=== PATIENT | male | born 1995 ===

== ENCOUNTER 2022-11-06 13:35 | Inpatient (IN) | payer MEDICAID, OTHER ==
--- NOTE | 2022-11-06 14:20 | ED ---
General Adult HPI - General Source: patient Mode of arrival: ambulatory Limitations: no limitations <Soraida Centeno - Last Filed: 11/06/22 14:20> - History of Present Illness -: week(s) Severity scale (1-10): 0 Improves with: none Worsens with: none Associated Symptoms: denies other symptoms Treatments Prior to Arrival: none <Angus Heard - Last Filed: 11/18/22 23:27> - General Chief complaint: Psychiatric Symptoms Stated complaint: Mental Health Time Seen by Provider: 11/06/22 14:19 - History of Present Illness Initial comments: 27-year-old male with no significant past medical history presents the emergency department for psychiatric evaluation (Soraida Centeno) This patient is a 27-year-old man who is complaining mainly of anxiety. He states that he has long-standing history of this and had been having good success with treatment about a year ago when he was on Invega. The patient states that he is out of the medicine and in fact has missed some appointments with his previous provider, so he is not able to obtain more of this. The patient is not having suicidal or homicidal ideation, he would like to get back on the medication before he reaches that stage. (Angus Heard) - Related Data Previous Rx's Medication Instructions Recorded ARIPiprazole IM SYRINGE [Abilify 400 mg IM QMONTHLY #1 each 11/14/22 Maintena Syringe] ARIPiprazole [Abilify] 10 mg PO DAILY 13 Days #13 tab 11/14/22 Nicotine 14Mg/24Hr Patch [Habitrol] 1 patch TRANSDERM DAILY 14 Days 11/14/22 #14 patch hydrOXYzine pamoate [Vistaril] 50 mg PO BID PRN 30 Days #60 cap 11/14/22 traZODone HCL [Desyrel] 25 mg PO HS PRN 30 Days #15 tab 11/14/22 Allergies Allergy/AdvReac Type Severity Reaction Status Date / Time No Known Allergies Allergy Verified 11/07/22 00:25 Review of Systems ROS Other: All systems not noted in ROS Statement are negative. <Soraida Centeno - Last Filed: 11/06/22 14:20> ROS Other: All systems not noted in ROS Statement are negative. Constitutional: Denies: fever, chills Respiratory: Denies: cough, dyspnea Cardiovascular: Denies: chest pain Gastrointestinal: Denies: abdominal pain, vomiting, diarrhea Genitourinary: Denies: dysuria, hematuria Neurological: Denies: headache, weakness Psychiatric: Reports: anxiety. Denies: auditory hallucinations, visual hallucinations, homicidal thoughts, suicidal thoughts <OrquideaAngus - Last Filed: 11/18/22 23:27> ROS Statement: Those systems with pertinent positive or pertinent negative responses have been documented in the HPI. Past Medical History Past Medical History: No Reported History History of Any Multi-Drug Resistant Organisms: None Reported Additional Past Surgical History / Comment(s): left hip, Past Psychological History: Anxiety Smoking Status: Current every day smoker Past Alcohol Use History: Daily Past Drug Use History: None Reported, Marijuana <Soraida Centeno - Last Filed: 11/06/22 14:20> General Exam Limitations: no limitations <Soraida Centeno - Last Filed: 11/06/22 14:20> General appearance: alert, in no apparent distress Head exam: Present: atraumatic, normocephalic Eye exam: Present: normal appearance. Absent: scleral icterus, conjunctival injection Neck exam: Present: normal inspection Respiratory exam: Present: normal lung sounds bilaterally. Absent: respiratory distress, wheezes, rales, rhonchi, stridor Cardiovascular Exam: Present: regular rate, normal rhythm, normal heart sounds. Absent: systolic murmur, diastolic murmur, rubs, gallop GI/Abdominal exam: Present: soft. Absent: tenderness Extremities exam: Present: normal inspection, normal capillary refill. Absent: pedal edema, calf tenderness Neurological exam: Present: alert Psychiatric exam: Present: anxious. Absent: depressed, agitated, flat affect, manic, homicidal ideation, suicidal ideation Skin exam: Present: warm, dry, intact, normal color. Absent: rash <OrquideaAngus - Last Filed: 11/18/22 23:27> - General Exam Comments Initial Comments: Visual Physical Exam Vital signs reviewed General: Well-appearing, nontoxic, no acute distress. Head: Normocephalic, atraumatic Eyes: PERRLA, EOMI ENT: Airway patent Chest: Nonlabored breathing Skin: No visual rash, normal skin tone Neuro: Alert and oriented 3 Musculoskeletal: No gross abnormalities (Soraida Centeno) Course Vital Signs 11/06/22 11/06/22 11/07/22 13:48 22:56 00:35 Temperature 97.7 F 98.0 F Pulse Rate 72 78 Pulse Rate [ 67 Left Sitting] Respiratory 18 14 14 Rate Blood Pressure 143/90 143/79 Blood Pressure 158/94 [Left Arm Sitting] O2 Sat by Pulse 98 99 99 Oximetry Medical Decision Making - Lab Data Result diagrams: 11/07/22 07:09 11/07/22 07:09 <Angus Heard - Last Filed: 11/18/22 23:27> - Medical Decision Making This patient is a 27-year-old man presenting with worsening of his usual psychiatric symptoms The patient is seen by EPS and they will admit to have a continuing care Was pt. sent in by a medical professional or institution (MAY[facility] Batres, [employer] MA[employer]GER, urgent care, hospital, or detention...) When possible be specific @ -[No] Did you speak to anyone other than the patient for history (EMS, parent, family, police, friend...)? What history was obtained from this source @ -[No] Did you review nursing and triage notes (agree or disagree)? Why? @ -[I reviewed and agree with nursing and triage notes] Were old charts reviewed (outside hosp., previous admission, EMS record, old EKG, old radiological studies, urgent care reports/EKG's, detention records)? Report findings @ -[No old charts were reviewed] Differential Diagnosis (chest pain, altered mental status, abdominal pain women, abdominal pain men, vaginal bleeding, weakness, fever, dyspnea, syncope, head ache, dizziness, GI bleed, back pain, seizure, CVA, palpatations, mental health, musculoskeletal)? @ -[Differential Mental Health Depression, anxiety, bipolar, psychosis, schizophrenia, borderline personality, situational depression, adjustment disorder, behavioral disorder, brain tumor, malingering, substance abuse, encephalopathy, medication reaction, dementia, hypothyroidism, degenerative neurologic disorder, lupus.... This is not meant to be all-inclusive list EKG interpreted by me (3pts min.). @ -[ X-rays interpreted by me (1pt min.). @ -[None done] CT interpreted by me (1pt min.). @ -[None done] U/S interpreted by me (1pt. min.). @ -[None done] What testing was considered but not performed or refused? (CT, X-rays, U/S, labs)? Why? @ -[None] What meds were considered but not given or refused? Why? @ -[None] Did you discuss the management of the patient with other professionals (professionals i.e. , PA, [employer] AND RECREATION MANAGER, lab, RT, psych nurse, social services assistant, report checker, teacher, dog license officer supervisor, high risk case manager)? Give summary @ -[EPS personnel Was smoking cessation discussed for >3mins.? @ -[No] Was critical care preformed (if so, how long)? @ -[No] Were there social determinants of health that impacted care today? How? (Homelessness, low income, unemployed, alcoholism, drug addiction, transportation, low edu. Level, literacy, decrease access to med. care, prison, rehab)? @ -[No] Was there de-escalation of care discussed even if they declined (Discuss DNR or withdrawal of care, Hospice)? DNR status @ -[No] What co-morbidities impacted this encounter? (DM, HTN, Smoking, COPD, CAD, Cancer, CVA, ARF, Chemo, Hep., AIDS, mental health diagnosis, sleep apnea, morbid obesity)? @ -[None] Was patient admitted / discharged? Hospital course, mention meds given and route, prescriptions, significant lab abnormalities, going to OR and other pertinent info. @ -[Admitted Undiagnosed new problem with uncertain prognosis? @ -[No] Drug Therapy requiring intensive monitoring for toxicity (Heparin, Nitro, Insulin, Cardizem)? @ -[No] Were any procedures done? @ -[No] Diagnosis/symptom? @ -[Acute psychosis Acute, or Chronic, or Acute on Chronic? @ -[Acute on chronic Uncomplicated (without systemic symptoms) or Complicated (systemic symptoms)? @ -[Uncomplicated Side effects of treatment? @ -[No] Exacerbation, Progression, or Severe Exacerbation? @ -[No] Poses a threat to life or bodily function? How? (Chest pain, USA, ME, pneumonia, PE, COPD, DKA, ARF, appy, cholecystitis, CVA, Diverticulitis, Homicidal, Suicidal, threat to staff... and all critical care pts) @ -[No] (Angus Heard) - Lab Data Lab Results 11/06/22 11/06/22 11/06/22 Range/Units 14:20 14:20 18:41 Urine Color Light Yellow Urine Appearance Clear (Clear) Urine pH 7.5 (5.0-8.0) Ur Specific [place] 1.006 (1.001-1.035) Urine Protein Negative (Negative) Urine Glucose (UA) Negative (Negative) Urine Ketones Negative (Negative) Urine Blood Negative (Negative) Urine Nitrite Negative (Negative) Urine Bilirubin Negative (Negative) Urine Urobilinogen <2.0 (<2.0) mg/dL Ur Leukocyte Esterase Negative (Negative) Urine Opiates Screen Not Detected (NotDetected) Ur Oxycodone Screen Not Detected (NotDetected) Urine Methadone Screen Not Detected (NotDetected) Ur Propoxyphene Screen Not Detected (NotDetected) Ur Barbiturates Screen Not Detected (NotDetected) U Tricyclic Antidepress Not Detected (NotDetected) Ur Phencyclidine Scrn Not Detected (NotDetected) Ur Amphetamines Screen Not Detected (NotDetected) U Methamphetamines Scrn Not Detected (NotDetected) U Benzodiazepines Scrn Not Detected (NotDetected) Urine Cocaine Screen Not Detected (NotDetected) U Marijuana (THC) Screen Detected H (NotDetected) Coronavirus (PCR) Not Detected (Not Detectd) Disposition <Soraida Centeno - Last Filed: 11/06/22 14:20> Is patient prescribed a controlled substance at d/c from ED?: No <Angus Heard - Last Filed: 11/18/22 23:27> Clinical Impression: Psychosis Disposition: ADMITTED IP TO THIS HOSP Condition: Stable
[2022-11-06 16:56] LABS: Amphetamine Screen,Urine Not Detected (NotDetected); Barbiturate Screen,Urine Not Detected (NotDetected); Benzodiazepines Screen,Urine Not Detected (NotDetected); Cocaine Screen,Urine Not Detected (NotDetected); Methadone Screen, Urine Not Detected (NotDetected); Opiate Screen,Urine Not Detected (NotDetected); Oxycodone Screen, Urine Not Detected (NotDetected); Phencyclidine Screen,Urine Not Detected (NotDetected); Tricyclic Antidepressant,Urine Not Detected (NotDetected); Urn Cannabinoid Scrn Detected (NotDetected)
[2022-11-06] MEDS ORDERED: MAG HYDROX/AL HYDROX/SIMETH 30 ML CUP PO PRN (23:52)
[2022-11-06] MEDS ORDERED: ACETAMINOPHEN TAB 325 MG TAB PO PRN (23:52)
[2022-11-06] MEDS ORDERED: MAGNESIUM HYDROXIDE 2,400 MG/10 ML CUP PO PRN (23:52)
[2022-11-06] MEDS ORDERED: HALOPERIDOL LACTATE 5 MG/ML 1 ML VIAL IM PRN (23:52)
[2022-11-06] MEDS ORDERED: LORazepam 1 MG TAB PO PRN (23:52)
[2022-11-06] MEDS ORDERED: haloperidoL 5 MG TAB PO PRN (23:54)
[2022-11-06] MEDS ORDERED: LORazepam 2 MG/ML INJ IM PRN (23:54)
[2022-11-07] MEDS: NICOTINE 14MG/24HR PATCH TRANSDERM SCH (03:08)
[2022-11-07 07:56] LABS: Basophils % (A) 0 %; Eosinophils # (A) 0.1 k/uL (0-0.7); Eosinophils % (A) 1 %; HCT 44.5 % (39.0-53.0); HGB 15.9 gm/dL (13.0-17.5); Lymphocytes # (A) 2.5 k/uL (1.0-4.8); Lymphocytes % (A) 30 %; MCH 31.2 pg (25.0-35.0); MCHC 35.6 g/dL (31.0-37.0); MCV 87.5 fL (80.0-100.0); Monocytes # (A) 0.4 k/uL (0-1.0); Monocytes % (A) 5 %; Neutrophils # (A) 5.1 k/uL (1.3-7.7); Neutrophils % (A) 62 %; Platelet Count 280 k/uL (150-450); RBC 5.08 m/uL (4.30-5.90); WBC 8.3 k/uL (3.8-10.6)
[2022-11-07 08:10] LABS: ALT 37 U/L (4-49); AST 29 U/L (17-59); African American GFR (CKD) >90 (>60 ml/min/1.73 sqM); Albumin 4.5 g/dL (3.5-5.0); Alkaline Phosphatase 115 U/L (38-126); Anion Gap 11 mmol/L; Blood Urea Nitrogen 9 mg/dL (9-20); Calcium 9.5 mg/dL (8.4-10.2); Carbon Dioxide 27 mmol/L (22-30); Chloride 105 mmol/L (98-107); Glucose 100 mg/dL (74-99); Non-African American GFR(CKD) >90 (>60 ml/min/1.73 sqM); Potassium 4.4 mmol/L (3.5-5.1); Sodium 143 mmol/L (137-145); Total Bilirubin 0.8 mg/dL (0.2-1.3); Total Protein 7.3 g/dL (6.3-8.2)
[2022-11-07 11:03] LABS: LDL Cholesterol,Calculated 80.7 mg/dL (0.0-131.0)
[2022-11-07 12:00] LABS: Appearance,Urine Clear (Clear); Bilirubin,Urine Negative (Negative); Blood,Urine Negative (Negative); Color,Urine Light Yellow; Glucose,Urine (UA) Negative (Negative); Ketones,Urine Negative (Negative); Leukocyte Esterase,Urine Negative (Negative); Nitrite,Urine Negative (Negative); PH, Urine 7.5 (5.0-8.0); Protein,Urine Negative (Negative); Specific Gravity,Urine 1.006 (1.001-1.035); Urobilinogen,Urine <2.0 mg/dL (<2.0)
[2022-11-07] MEDS ORDERED: LORazepam 1 MG TAB PO PRN (14:52)
--- NOTE | 2022-11-07 15:01 | P.HP ---
Psychiatric H&P - . H&P Date: 11/07/22 History & Physical: Allergies Allergy/AdvReac Type Severity Reaction Status Date / Time No Known Allergies Allergy Verified 11/07/22 00:25 Vital Signs Temp 98.0 F 11/07/22 00:35 Pulse 73 11/07/22 08:44 Resp 16 11/07/22 08:44 BP 129/86 11/07/22 08:44 Pulse Ox 99 11/07/22 00:35 FiO2 Intake & Output 11/06/22 11/07/22 11/07/22 18:59 06:59 18:59 Weight 97.522 kg 95.396 kg Laboratory Last Values WBC 8.3 k/uL (3.8-10.6) 11/07/22 07:09 RBC 5.08 m/uL (4.30-5.90) 11/07/22 07:09 Hgb 15.9 gm/dL (13.0-17.5) 11/07/22 07:09 Hct 44.5 % (39.0-53.0) 11/07/22 07:09 MCV 87.5 fL (80.0-100.0) 11/07/22 07:09 MCH 31.2 pg (25.0-35.0) 11/07/22 07:09 MCHC 35.6 g/dL (31.0-37.0) 11/07/22 07:09 RDW 13.0 % (11.5-15.5) 11/07/22 07:09 Plt Count 280 k/uL (150-450) 11/07/22 07:09 MPV 8.0 11/07/22 07:09 Neutrophils % 62 % 11/07/22 07:09 Lymphocytes % 30 % 11/07/22 07:09 Monocytes % 5 % 11/07/22 07:09 Eosinophils % 1 % 11/07/22 07:09 Basophils % 0 % 11/07/22 07:09 Neutrophils # 5.1 k/uL (1.3-7.7) 11/07/22 07:09 Lymphocytes # 2.5 k/uL (1.0-4.8) 11/07/22 07:09 Monocytes # 0.4 k/uL (0-1.0) 11/07/22 07:09 Eosinophils # 0.1 k/uL (0-0.7) 11/07/22 07:09 Basophils # 0.0 k/uL (0-0.2) 11/07/22 07:09 Sodium 143 mmol/L (137-145) 11/07/22 07:09 Potassium 4.4 mmol/L (3.5-5.1) 11/07/22 07:09 Chloride 105 mmol/L (98-107) 11/07/22 07:09 Carbon Dioxide 27 mmol/L (22-30) 11/07/22 07:09 Anion Gap 11 mmol/L 11/07/22 07:09 BUN 9 mg/dL (9-20) 11/07/22 07:09 Creatinine 0.78 mg/dL (0.66-1.25) 11/07/22 07:09 Est GFR (CKD-EPI)AfAm >90 (>60 ml/min/1.73 sqM) 11/07/22 07:09 Est GFR (CKD-EPI)NonAf >90 (>60 ml/min/1.73 sqM) 11/07/22 07:09 Glucose 100 mg/dL (74-99) H 11/07/22 07:[address] Glu mg/dL 108 11/07/22 07:09 Hemoglobin A1c 5.4 % (0.0-6.0) 11/07/22 07:09 Calcium 9.5 mg/dL (8.4-10.2) 11/07/22 07:09 Total Bilirubin 0.8 mg/dL (0.2-1.3) 11/07/22 07:09 AST 29 U/L (17-59) 11/07/22 07:09 ALT 37 U/L (4-49) 11/07/22 07:09 Alkaline Phosphatase 115 U/L (38-126) 11/07/22 07:09 Total Protein 7.3 g/dL (6.3-8.2) 11/07/22 07:09 Albumin 4.5 g/dL (3.5-5.0) 11/07/22 07:09 Triglycerides 114.00 mg/dL (0.00-149.00) 11/07/22 07:09 Cholesterol 158.00 mg/dL (0.00-200.00) 11/07/22 07:09 LDL Cholesterol, Calc 80.7 mg/dL (0.0-131.0) 11/07/22 07:09 VLDL Cholesterol, Calc 22.80 mg/dL (5.00-40.00) 11/07/22 07:09 HDL Cholesterol 54.50 mg/dL (40.00-60.00) 11/07/22 07:09 Cholesterol/HDL Ratio 2.90 Ratio 11/07/22 07:09 TSH 1.090 mIU/L (0.465-4.680) 11/07/22 07:09 Urine Color Light Yellow 11/06/22 14:20 Urine Appearance Clear (Clear) 11/06/22 14:20 Urine pH 7.5 (5.0-8.0) 11/06/22 14:20 Ur Specific [place] 1.006 (1.001-1.035) 11/06/22 14:20 Urine Protein Negative (Negative) 11/06/22 14:20 Urine Glucose (UA) Negative (Negative) 11/06/22 14:20 Urine Ketones Negative (Negative) 11/06/22 14:20 Urine Blood Negative (Negative) 11/06/22 14:20 Urine Nitrite Negative (Negative) 11/06/22 14:20 Urine Bilirubin Negative (Negative) 11/06/22 14:20 Urine Urobilinogen <2.0 mg/dL (<2.0) 11/06/22 14:20 Ur Leukocyte Esterase Negative (Negative) 11/06/22 14:20 Urine Opiates Screen Not Detected (NotDetected) 11/06/22 14:20 Ur Oxycodone Screen Not Detected (NotDetected) 11/06/22 14:20 Urine Methadone Screen Not Detected (NotDetected) 11/06/22 14:20 Ur Propoxyphene Screen Not Detected (NotDetected) 11/06/22 14:20 Ur Barbiturates Screen Not Detected (NotDetected) 11/06/22 14:20 U Tricyclic Antidepress Not Detected (NotDetected) 11/06/22 14:20 Ur Phencyclidine Scrn Not Detected (NotDetected) 11/06/22 14:20 Ur Amphetamines Screen Not Detected (NotDetected) 11/06/22 14:20 U Methamphetamines Scrn Not Detected (NotDetected) 11/06/22 14:20 U Benzodiazepines Scrn Not Detected (NotDetected) 11/06/22 14:20 Urine Cocaine Screen Not Detected (NotDetected) 11/06/22 14:20 U Marijuana (THC) Screen Detected (NotDetected) H 11/06/22 14:20 Coronavirus (PCR) Not Detected (Not Detectd) 11/06/22 18:41 11/07/22 14:54 IDENTIFYING DATA: Patient is a 27 yo male, currentlyu is , lives with his and child. he works for a [employer] company. HPI: Patient presented to the hospital yesterday with significant psychiatric concerns. patient was c/o anxiety and strssors in his life. he previusly was following up with his psychiatrist at [facility] however has been off his invega pills for about a year now. he was admitted to the mhu yesterday on voluntary baiss. Patient was seen lying in his bed. Agreeable to speak to customs entry writer. Patient appeared to be tired and mildly confused at first and difficult to direct. He was yawning several times during the conversation. His urine drug swings positive for THC. He was fairly concrete blunted and fairly vague and evasive. He states that he's been under a lot of stress lately. He claims that he's been having a lot of issues with his and states that "she is not wanted me there anymore". He claims that he is unsure why. He states that his family is also concerned about him. He claims that he does have a long-standing mental illness however does not know what he is diagnosed with. He claims that he was previously on paliperidone prescribed by his outpatient psychiatrist however has not been to follow-up appointments in about a year. He has been off his medications for about a year. He states that he does have significant anxiety and mild depression at this time. He states that he has been having poor sleep and poor appetite lately. Claims that he does have some suicidal ideations, no intent or plan today, denies any homicidal ideations intent or plan. At this time patient denies any auditory or visual hallucinations. Patient denies any flight of ideas racing thoughts and increased in goal directed behavior. Patient admits to using marijuana and cigarettes regularly. PAST PSYCHIATRIC HISTORY: Patient states that he has some form of mental illness however does not know what he is diagnosed with. A claims that he is not on any psychiatric medications at this time however was previously on paliperidone. He claims that his previously psychiatrically hospitalized twice in the past, once at [facility] and another in [place]. Patient denies any psychiatric outpatient follow- up. Patient denies any history of suicide attempts in the past. Past Medical History: No Reported History History of Any Multi-Drug Resistant Organisms: None Reported Additional Past Surgical History / Comment(s): left hip, Past Psychological History: Anxiety Smoking Status: Current every day smoker Past Alcohol Use History: Daily Past Drug Use History: None Reported, Marijuana ALLERGIES: as per EMR CHEMICAL DEPENDENCY HISTORY: as per HPI FAMILY PSYCHIATRIC/SUBSTANCE USE HISTORY: Claims it is sister has bipolar disorder he believes SOCIAL HISTORY: Patient was born and raised in [place] and states that his family "moved around" and he now resides in [place]. He states that he lives with his and 1 child in a house. He claims that he worked for a [employer]. He claims that he completed high school, denies any legal history. MENTAL STATUS EXAM: General Appearance: Patient appears to be confused at times, appears to be tired and yawning, stated age is alert, somewhat difficult to redirect at times but attempts to cooperate. Patient appears to have poor hygiene and grooming. Behavior: Patient is seated without any agitated behavior. Difficult to redirect at times. Speech: Patient's speech is fluent and nonpressured. Monotone and concrete Mood/Affect: Patient reports their mood is mainly anxious, affect is congruent and constricted. Suicidality/Homicidality: Patient denies having any homicidal ideation intent or plan. Denies any suicidal ideations intent or plan Perceptions: Patient denies any visual hallucinations and denies any auditory hallucinations Though content/process: [place], poverty of content. No delusions or paranoia today. Bizarre and illogical at times. Memory and concentration: AOX3, grossly intact for the purposes of this session. Can spell "WORLD" backwards Judgment and insight: poor STRENGTHS/WEAKNESSES: strength is that patient is resilient. Weakness is that patient has poor judgment and is impulsive INTELLECT: average IMPRESSIONS: Schizoaffective disorder, depressive type Cannabis use disorder Nicotine dependence PLAN: -Patient is admitted under voluntary status to MHU for stabilization of psychiatric symptoms and safety. Patient has signed adult voluntary form and medication consent and is placed in patient's chart. -Medications : Will start patient on Abilify 5 mg daily for mood stabilization/psychosis, trazodone 50 mg daily at bedtime for insomnia/mood. -Ativan and Haldol PRN for agitation/aggression -Patient was counselled on substance abuse and desired to cut back on use -Patient was informed of the risks, benefits and side effects of the medication and patient verbally consented to taking the medications. Patient signed med consent form and was placed in chart. -Internal Medicine consult to perform medical evaluation and physical. -NRT - nicotine patch -SW on board for discharge planning. Encourage patient to participate in groups to work on coping skills.
[2022-11-07] MEDS: ARIPiprazole 5 MG TAB PO SCH (15:59)
[2022-11-07] MEDS ORDERED: traZODone HCL 50 MG TAB PO SCH (21:00)
--- NOTE | 2022-11-08 00:23 | P.PN ---
Progress Note - Text Progress Note Date: 11/07/22 patient sleeping could not be evaluated
[2022-11-08] MEDS: NICOTINE 14MG/24HR PATCH TRANSDERM SCH (08:03)
[2022-11-08] MEDS: ARIPiprazole 5 MG TAB PO SCH (08:03)
[2022-11-08] MEDS ORDERED: hydrOXYzine pamoate 25 MG CAP PO PRN (11:41)
--- NOTE | 2022-11-08 12:05 | P.PN ---
Progress Note - Text Progress Note Date: 11/08/22 Interval History: Patient was seen [wandering the hallways] near the nurse's desk and was direct able and agreeable to speak with keno writer in the office. Patient appears to be mildly improved in terms of his behaviors and is mildly less bizarre today. He was somewhat focused on his medications and also discharge. He was fairly vague about what he is speaking with his about and their issues. He claims that he was not able to sleep fairly well last night or for continues to minimize most of his symptoms. He did look at keno writer's computer screen several times asking about discharge and what he is doing. He has poor insight and judgment however is mildly improved compared to yesterday. He claims that he is up and going to some groups and some meals. He appears to have mildly improving hygiene and grooming compared to yesterday. At this time patient denies any suicidal or homical ideations, intent or plan. Patient denies any auditory, visual hallucinations. Patient denies any side effects from the medications and has been compliant with meds. Mental Status Exam: General Appearance: Patient appears to be less confused, contiues to be yawning, stated age is alert, somewhat difficult to redirect at times but attempts to cooperate. Patient appears to have improving mildly hygiene and grooming. Behavior: Patient is seated without any agitated behavior. Speech: Patient's speech is fluent and nonpressured. Monotone and concrete Mood/Affect: Patient reports their mood is mainly anxious, affect is congruent and constricted. Suicidality/Homicidality: Patient denies having any homicidal ideation intent or plan. Denies any suicidal ideations intent or plan Perceptions: Patient denies any visual hallucinations and denies any auditory hallucinations Though content/process: [place], February on discharge. No delusions or paranoia today. Bizarre and illogical at times, improving mildly Memory and concentration: AOX3, grossly intact for the purposes of this session. Judgment and insight: poor, improving mildly IMPRESSIONS: Schizoaffective disorder, depressive type Cannabis use disorder Nicotine dependence Plan: -Patient continues to meet criteria for inpatient psychiatric admission for symptom stabilization and safety. Patient has [] signed [adult voluntary form and] [medication consent] and was placed in patient's chart. -Medications: []Increase Abilify by mouth to 7.5 mg daily for mood stabilization/psychosis, increase trazodone to 100 mg daily at bedtime for insomnia/mood. -When necessary Ativan and Haldol for agitation/aggression. -NRT - [nicotine patch] -SW on board for discharge planning. Encouraged the patient to participate in milieu. likely discharge early next week if patient improves psychgiatrically.
[2022-11-08] MEDS ORDERED: traZODone HCL 100 MG TAB PO SCH (21:00)
--- NOTE | 2022-11-09 01:29 | P.MDCNMH ---
History of Present Illness H&P Date: 11/08/22 Chief Complaint: medical evaluation 27 year old male with no significant past medical history patient coming in for psych evaluation due to anxiety , he denies any suicidal ideation , auditory hallucinations . he did not tolerate his psych medications in the past and stopped them he denies any medical concerns at this time, denies any fever, chills, nausea , vomiting, URI , changes in bowel or urinary habits. he admits to smoking , and marijuana, denies any alcohol Review of Systems Pertinent positives as noted in HPI. All other systems were reviewed and are negative Past Medical History Past Medical History: No Reported History History of Any Multi-Drug Resistant Organisms: None Reported Additional Past Surgical History / Comment(s): left hip dislocation @ approximately 11 years old Past Anesthesia/Blood Transfusion Reactions: Unable to Obtain Past Psychological History: Anxiety Smoking Status: Current every day smoker, Vaper Past Alcohol Use History: Daily Past Drug Use History: None Reported, Marijuana Medications and Allergies Home Medications Medication Instructions Recorded Confirmed Type No Known Home Medications 11/06/22 11/07/22 History Allergies Allergy/AdvReac Type Severity Reaction Status Date / Time No Known Allergies Allergy Verified 11/07/22 00:25 Physical Exam Constitutional: No acute distress, conversant Eyes: Anicteric sclerae, moist conjunctiva, Pupils equal round reactive to light ENMT: NC/AT Oropharynx clear, no erythema, or exudates Neck: Supple, no masses, or JVD No carotid bruits No thyromegaly Lungs: Clear to auscultation Clear to percussion Normal respiratory effort, no accessory muscle use Cardiovascular: Heart regular in rate and rhythm, No murmurs, gallops, or rubs No peripheral edema Abdominal: Soft Nontender, no guarding, rebound or rigidity Abdomen moving with respiration Normoactive bowel sounds Skin: Normal temperature, tone, texture, turgor Extremities: No digital cyanosis No clubbing Pedal pulses intact and symmetrical Radial pulses intact and symmetrical No calf tenderness Psychiatric: Alert and oriented to person, place and time Neuro Muscles Strength 5/5 in all 4 extremities Sensation to light touch grossly present throughout Cranial nerves II-XII grossly intact Cranial Nerve Examination - Cranial Nerves Cranial Nerve II- Optic: Intact Cranial Nerve III- Oculomotor: Intact Cranial Nerve IV- Trochlear: Intact Cranial Nerve V- Trigeminal: Intact Cranial Nerve - Abducens: Intact Cranial Nerve VII- Facial: Intact Cranial Nerve VIII- Auditory: Intact Cranial Nerve IX- Glossopharyngeal: Intact Cranial Nerve X- Vagus: Intact Cranial Nerve XI- Accessory: Intact Cranial Nerve XII- Hypoglossal: Intact Results CBC & Chem 7: 11/07/22 07:09 11/07/22 07:09 Assessment and Plan Assessment: anxiety management per psych tobacco smoking couseled to quit smoking NRT offered obesity counseled regarding weight loss and life style modification stable from medical stand point labs reviewed , unremarkable thank you for this consultation
[2022-11-09] MEDS: ARIPiprazole 5 MG TAB PO SCH (08:59)
[2022-11-09] MEDS: NICOTINE 14MG/24HR PATCH TRANSDERM SCH (08:59)
[2022-11-09] MEDS ORDERED: ARIPiprazole 10 MG TAB PO SCH (09:00)
--- NOTE | 2022-11-09 13:58 | P.PN ---
Progress Note - Text Progress Note Date: 11/09/22 Interval History: Patient was seen wandering the hallways near the nurse's desk and was directable and agreeable to speak with advertising copywriter in the office. Patient appears to be mildly improved in terms of his behaviors and was a little bit more focused today on his medications. He claims that he spoke with his family about his treatment and they are agreeable to continue on with it. He was fairly resistant to having his medications increased once again. He claims that he is not sure about the increased dose of the Abilify however is willing to continue on with it for a few more days. He states that the trazodone gives him "hunger" and wanted a decreased iron to 50. He states that he is napping during the day and slept about 4 or 5 hours last night. He spoke about the importance of sleep hygiene. He claims that he is going to some groups. He apparently had a behavioral outburst this morning during the goal setting group. At this time patient denies any suicidal or homical ideations, intent or plan. Patient denies any auditory, visual hallucinations. Patient denies any side effects from the medications and has been compliant with meds. Mental Status Exam: General Appearance: Patient appears to be less confused, stated age is alert, attempts to cooperate. Patient appears to have improving mildly hygiene and grooming. Behavior: Patient is seated without any agitated behavior. Mildly more cooperative today. Speech: Patient's speech is fluent and nonpressured. Monotone and concrete Mood/Affect: Patient reports their mood is mainly anxious, affect is congruent and constricted. Suicidality/Homicidality: Patient denies having any homicidal ideation intent or plan. Denies any suicidal ideations intent or plan Perceptions: Patient denies any visual hallucinations and denies any auditory hallucinations Though content/process: [place], focused on medications and discharge. No delusions or paranoia today, improving mildly Memory and concentration: AOX3, grossly intact for the purposes of this session. Judgment and insight: poor, improving mildly IMPRESSIONS: Schizoaffective disorder, depressive type Cannabis use disorder Nicotine dependence Plan: -Patient continues to meet criteria for inpatient psychiatric admission for symptom stabilization and safety. Patient has signed adult voluntary form and medication consent and was placed in patient's chart. -Medications: continue Abilify by mouth 7.5 mg daily for mood stabilization/psychosis, decrease trazodone to 50 mg daily at bedtime for insomnia/mood as patient was complaining of s/e hunger? -When necessary Ativan and Haldol for agitation/aggression. -NRT - nicotine patch -SW on board for discharge planning. Encouraged the patient to participate in milieu. likely discharge early next week if patient improves psychiatrically.
[2022-11-09] MEDS ORDERED: traZODone HCL 50 MG TAB PO SCH (21:00)
[2022-11-10] MEDS: ARIPiprazole 5 MG TAB PO SCH (08:13)
[2022-11-10] MEDS: NICOTINE 14MG/24HR PATCH TRANSDERM SCH (08:18)
[2022-11-10] MEDS: hydrOXYzine pamoate 25 MG CAP PO PRN (10:01)
--- NOTE | 2022-11-10 10:14 | P.PN ---
Progress Note - Text Progress Note Date: 11/10/22 Interval History: Patient was seen wandering the hallways and was directable and agreeable to sp margarette with technical document writer in the office. He says he has been feeling better with the medication and appreciates discussing dosages, risks, side effects. He denies having concerns with Abilify but says that he has been feeling a little bit of abdominal discomfort with trazodone 50 mg. He requests that this be decreased. He says that he slept well at night last night with the dose of trazodone. He reports fair energy and "good" mood. At this time patient denies any suicidal or homicidal ideations, intent or plan. Patient denies any auditory, visual hallucinations. Patient has been compliant with meds. Mental Status Exam: General Appearance: Patient appears to be stated age is alert, attempts to cooperate. Patient appears to have improving mildly hygiene and grooming. Behavior: Patient is seated without any agitated behavior. Restless and fidgeting Speech: Patient's speech is fluent and nonpressured. Monotone and concrete Mood/Affect: Patient reports their mood is "good", affect is congruent and constricted. Suicidality/Homicidality: Patient denies having any homicidal ideation intent or plan. Denies any suicidal ideations intent or plan Perceptions: Patient denies any visual hallucinations and denies any auditory hallucinations Though content/process: [place], focused on medications and discharge. No delusions or paranoia today, improving mildly Memory and concentration: AOX3, grossly intact for the purposes of this session. Judgment and insight: poor, improving mildly IMPRESSIONS: Schizoaffective disorder, depressive type Cannabis use disorder Nicotine dependence Plan: -Patient continues to meet criteria for inpatient psychiatric admission for symptom stabilization and safety. Patient has signed adult voluntary form and medication consent and was placed in patient's chart. -Medications: continue Abilify by mouth 7.5 mg daily for mood stabilization/psychosis, decrease trazodone to 25 mg daily at bedtime for insomnia/mood as patient was complaining of s/e abdominal discomfort Will consider adding antidepressant -When necessary Vistaril/Ativan and Haldol for agitation/aggression. -NRT - nicotine patch -SW on board for discharge planning. Encouraged the patient to participate in milieu. likely discharge early next week if patient improves psychiatrically.
[2022-11-10] MEDS: traZODone HCL 50 MG TAB PO SCH (21:26)
[2022-11-11] MEDS: ARIPiprazole 5 MG TAB PO SCH (08:19)
[2022-11-11] MEDS: NICOTINE 14MG/24HR PATCH TRANSDERM SCH (08:19)
--- NOTE | 2022-11-11 16:24 | P.PN ---
Progress Note - Text Progress Note Date: 11/11/22 Interval History: Patient was seen wandering the hallways and was directable and agreeable to desiree pfeiffer with sign writer hand in the office. Patient has downcast eyes and has dysphoric affect. However, patient would not discuss much of his history with this provider. He made vague references to having auditory hallucinations prior to hospitalization but says that they have improved current medication regimen. He says that he spoke with his and child and looks forward to spending time with them in the future. He says that there have been a lot of stressors in his life along with his . But he was hesitant to discuss these further. He denies having concerns with Abilify and says he did better on trazodone 25 mg. He says that he slept well at night last night with the dose of trazodone. He reports fair energy and "good" mood. Discussed antidepressants but patient was not agreeable with these at this time. Per nursing notes, patient was paranoid of statements made by over the phone. At this time patient denies any suicidal or homicidal ideations, intent or plan. Patient denies any auditory, visual hallucinations. Patient has been compliant with meds. Mental Status Exam: General Appearance: Patient appears to be stated age is alert, attempts to cooperate. Patient appears to have improving mildly hygiene and grooming. Behavior: Patient is seated without any agitated behavior. Downcast eyes Speech: Patient's speech is fluent and nonpressured. Monotone and concrete Mood/Affect: Patient reports their mood is "good", affect is dysphoric. Suicidality/Homicidality: Patient denies having any homicidal ideation intent or plan. Denies any suicidal ideations intent or plan Perceptions: Patient denies any visual hallucinations and denies any auditory hallucinations Though content/process: [place], focused on medications and discharge. No delusions or paranoia today, improving mildly Memory and concentration: AOX3, grossly intact for the purposes of this session. Judgment and insight: poor, improving mildly IMPRESSIONS: Schizoaffective disorder, depressive type Cannabis use disorder Nicotine dependence Plan: -Patient continues to meet criteria for inpatient psychiatric admission for symptom stabilization and safety. Patient has signed adult voluntary form and medication consent and was placed in patient's chart. -Medications: Increase Abilify to 10 mg daily for mood stabilization/psychosis, trazodone 25 mg daily at bedtime for insomnia/mood as patient was complaining of s/e abdominal discomfort Will consider adding antidepressant -When necessary Vistaril/Ativan and Haldol for agitation/aggression. -NRT - nicotine patch -SW on board for discharge planning. Encouraged the patient to participate in milieu. likely discharge early next week if patient improves psychiatrically.
[2022-11-11] MEDS: traZODone HCL 50 MG TAB PO SCH (20:11)
[2022-11-12] MEDS: NICOTINE 14MG/24HR PATCH TRANSDERM SCH (07:50)
[2022-11-12] MEDS: ARIPiprazole 10 MG TAB PO SCH (11:31)
--- NOTE | 2022-11-12 14:02 | P.PN ---
Progress Note - Text Progress Note Date: 11/12/22 Interval History: Patient was seen wandering the hallways near the nurse's desk and was directable and agreeable to speak with customs entry writer in the office. Patient claims that he has been trying to go to more groups lately. He continues to have poor eye contact, is less bizarre today during conversation. Patient states that his Abilify was increased this morning. He continues to be fairly resistant to having his medications increased further. He states that the trazodone is able to help him sleep at nighttime. Claims that he is taking naps during the day. He states that he has been having "relationship issues" with his however fairly vague about what's going on. He appears to be less paranoid and more frustrated with not being discharged. States that his appetite is improving. At this time patient denies any suicidal or homical ideations, intent or plan. Patient denies any auditory, visual hallucinations. Patient denies any side effects from the medications and has been compliant with meds. Mental Status Exam: General Appearance: Patient appears to be less confused, stated age is alert, attempts to cooperate. Patient appears to have improving mildly hygiene and grooming. Behavior: Patient is seated without any agitated behavior. Mildly more cooperative today. Speech: Patient's speech is fluent and nonpressured. Monotone and concrete, improving mildly Mood/Affect: Patient reports their mood is improving mildly, affect is congruent and constricted. Suicidality/Homicidality: Patient denies having any homicidal ideation intent or plan. Denies any suicidal ideations intent or plan Perceptions: Patient denies any visual hallucinations and denies any auditory h allucinations Though content/process: [place], focused on medications and discharge. No delusions or paranoia today, improving mildly Memory and concentration: AOX3, grossly intact for the purposes of this session. Judgment and insight: chronically poor, improving mildly IMPRESSIONS: Schizoaffective disorder, depressive type Cannabis use disorder Nicotine dependence Plan: -Patient continues to meet criteria for inpatient psychiatric admission for symptom stabilization and safety. Patient has signed adult voluntary form and medication consent and was placed in patient's chart. -Medications: continue Abilify by mouth 10 mg daily for mood stabilization/psychosis, continue trazodone 25 mg daily at bedtime for insomnia/mood -When necessary Ativan and Haldol for agitation/aggression -NRT - nicotine patch -SW on board for discharge planning. Encouraged the patient to participate in milieu. likely discharge in 2-3 days once patient improves psychiatrically.
[2022-11-12] MEDS: hydrOXYzine pamoate 25 MG CAP PO PRN (20:14)
[2022-11-12] MEDS: traZODone HCL 50 MG TAB PO SCH (20:15)
[2022-11-13] MEDS: ARIPiprazole 10 MG TAB PO SCH (07:39)
[2022-11-13] MEDS: NICOTINE 14MG/24HR PATCH TRANSDERM SCH (07:39)
[2022-11-13] MEDS ORDERED: ARIPiprazole IM SYRINGE 400 MG (NO CHARGE) PHARMACY STOCK IM ONE (11:47)
[2022-11-13] MEDS: hydrOXYzine pamoate 25 MG CAP PO PRN (11:54)
--- NOTE | 2022-11-13 12:51 | P.PN ---
Progress Note - Text Progress Note Date: 11/13/22 Interval History: Patient was seen wandering the hallways near the nurse's desk and medication w indow and was directable and agreeable to speak with com writer in the office. Patient appears to be more directable today and appropriately during conversation. Improving eye contact. He appears to be less hesitant today with medications. We spoke about long-acting injections agreeable to try the Abilify Maintenna today. He asked several questions about medications. He states that he was able to sleep a bit better last night. He states that he's been speaking with his and other and other family members over the phone. He states that he has been trying to go to some groups, as very [place] was fairly vague on what he is learning. States that he is up for meals. States that his appetite is improving. At this time patient denies any suicidal or homical ideations, intent or plan. Patient denies any auditory, visual hallucinations. Patient denies any side effects from the medications and has been compliant with meds. Mental Status Exam: General Appearance: Patient appears to be less confused, stated age is alert, attempts to cooperate. Patient appears to have improving mildly hygiene and grooming. Behavior: Patient is seated without any agitated behavior. more cooperative today. Speech: Patient's speech is fluent and nonpressured. Monotone and concrete, improving mildly Mood/Affect: Patient reports their mood is improving mildly, affect is congruent and constricted. Suicidality/Homicidality: Patient denies having any homicidal ideation intent or plan. Denies any suicidal ideations intent or plan Perceptions: Patient denies any visual hallucinations and denies any auditory hallucinations Though content/process: [place], No delusions or paranoia today, improving mildly. more goal oriented. Memory and concentration: AOX3, grossly intact for the purposes of this session. Judgment and insight: chronically poor, improving mildly IMPRESSIONS: Schizoaffective disorder, depressive type Cannabis use disorder Nicotine dependence Plan: -Patient continues to meet criteria for inpatient psychiatric admission for symptom stabilization and safety. Patient has signed adult voluntary form and medication consent and was placed in patient's chart. -Medications: continue Abilify by mouth 10 mg daily for mood stabilization/psychosis, continue trazodone 25 mg daily at bedtime for insomnia/mood. patient is agreeable to receive abilify maintenna 400 mg IM today to ensure compliance. -When necessary Ativan and Haldol for agitation/aggression -NRT - nicotine patch -SW on board for discharge planning. Encouraged the patient to participate in milieu. likely discharge tomorrow back home if patient continues to do well. patient will receive Avina today
[2022-11-13] MEDS: traZODone HCL 50 MG TAB PO SCH (20:30)
[2022-11-14] MEDS: hydrOXYzine pamoate 25 MG CAP PO PRN (00:55)
[2022-11-14 07:15] VITALS: BP 131/84; PULSE 86; RESP 14; TEMP 98.7
[2022-11-14] MEDS: ARIPiprazole 10 MG TAB PO SCH (08:17)
[2022-11-14] MEDS: NICOTINE 14MG/24HR PATCH TRANSDERM SCH (08:17)
[2022-11-14] MEDS ORDERED: ARIPiprazole IM SYRINGE 400 MG (NO CHARGE) PHARMACY STOCK IM ONE (10:00)
--- NOTE | 2022-11-14 10:12 | P.DS ---
Providers Date of admission: 11/06/22 22:39 Expected date of discharge: 11/14/22 Attending physician: Dale Marsh MD Consults: 11/06/22 23:52 Consult Physician Routine Consulting Provider: [facility] Consult Reason/Comments: H&P and medical Do you want consulting provider notified?: Yes Primary care physician: Bernardo Fung - Discharge Diagnosis(es) (1) Schizoaffective disorder, depressive type Current Visit: Yes Status: Acute Priority: High (2) Cannabis use disorder Current Visit: Yes Status: Acute Priority: Medium (3) Nicotine dependence Current Visit: Yes Status: Acute Priority: Low Hospital Course: Admission HPI: Admission note was completed by telegraphic typewriter operator chief "Patient is a 27 yo male, currentlyu is , lives with his and child. he works for a [employer] company. Patient presented to the hospital yesterday with significant psychiatric concerns. patient was c/o anxiety and strssors in his life. he previusly was following up with his psychiatrist at [facility] however has been off his invega pills for about a year now. he was admitted to the [facility] yesterday on voluntary baiss. Patient was seen lying in his bed. Agreeable to speak to telegraphic typewriter operator chief. Patient appeared to be tired and mildly confused at first and difficult to direct. He was yawning several times during the conversation. His urine drug swings positive for THC. He was fairly concrete blunted and fairly vague and evasive. He states that he's been under a lot of stress lately. He claims that he's been having a lot of issues with his and states that "she is not wanted me there anymore". He claims that he is unsure why. He states that his family is also concerned about him. He claims that he does have a long-standing mental illness however does not know what he is diagnosed with. He claims that he was previously on paliperidone prescribed by his outpatient psychiatrist however has not been to follow-up appointments in about a year. He has been off his medications for about a year. He states that he does have significant anxiety and mild depression at this time. He states that he has been having poor sleep and poor appetite lately. Claims that he does have some suicidal ideations, no intent or plan today, denies any homicidal ideations intent or plan. At this time patient denies any auditory or visual hallucinations. Patient denies any flight of ideas racing thoughts and increased in goal directed behavior. Patient admits to using marijuana and cigarettes regularly." Hospital course: Upon admission to the unit patient was directable and agreeable to commence treatment and signed adult voluntary form . Patient was initially confused and bizarre however with time and treatment he got along well with other patients on the unit and followed unit protocol. Patient was compliant with the medications and denied any side effects throughout hospital course. Patient was started on Abilify by mouth 10 mg daily for mood stabilization/psychosis, trazodone 25 mg daily at bedtime for insomnia/mood, patient was offered Abilify Maintenna 400 mg IM and he accepted, will be given on day of discharge 11/14, next dose will be due in one month on 12/12. Patient spoke of his stressors and engaged in therapy both group and individual. Patient was also seen by medical team for history and physical exam. Throughout the course of the hospitalization patient gradually improved with regards to mood, anxiety, psychosis, sleep and returned back to their baseline level of functioning. On the day of discharge patient denied any suicidal or homicidal ideations intent or plan denied any auditory or visual hallucinations. Patient endorsed wanting to live for his health and family. The patient denied any access to guns or weapons. Patient denied any paranoia and did not endorse any delusions. Patient does have a significant history of substance abuse and was counseled on abstaining from all substances including alcohol and marijuana. Patient elected to do outpatient substance use treatment program through [facility]. Patient was also counseled on the medications and need for regular compliance and was encouraged to follow-up with their outpatient appointment for mental health and also for primary care. Prior to discharge a family meeting will be arranged by social science manager to answer any questions and ensure safety upon discharge. Mental status exam: General Appearance: Patient appears to be wearing glasses, stated age is alert, pleasant, and cooperative. Patient is in no acute distress and has improved hygiene and grooming Behavior: Patient is calmly seated without any agitated behavior. Speech: Patient's speech is fluent and nonpressured. concrete Mood/Affect: Patient reports their mood is "good", affect is congruent Suicidality/Homicidality: Patient denies having any suicidal or homicidal ideation intent or plan. Perceptions: Patient denies any auditory or visual hallucinations. Though content/process: There is no evidence of any delusional thought content and thought process is linear and goal-directed Memory and concentration: AOX3, grossly intact for the purposes of this session. Can spell "WORLD" backwards correctly. Judgment and insight: chronically poor, however has improved with guarded prognosis Impression: schizoaffective disorder depressive type cannabis use disorder Nicotine dependence Plan: -Continue with discharge today as patient has improved and stabilized psychiatrically and is not currently an imminent threat to himself and/or others. Patient will remain at chronically elevated risk for harm to self and/or others due to his chronically poor insight/judgment and substance abuse. -Continue medications: Continue with Abilify by mouth 10 mg daily for 13 more days then discontinue. Patient will be given Abilify Maintenna 400 mg IM today and next dose will be due on 12/12. Trazodone 25 mg daily at bedtime for insomnia/mood. Vistaril twice a day when necessary for anxiety. -Patient was counseled on the need for medication compliance and appropriate follow-up at mental health and also primary care for medical issues. Patient verbalized understanding and agreed. -Social work to arrange for and conduct family meeting to ensure safety upon discharge and answer any questions/concerns. Social work also to arrange for patients follow up appointments with [facility] for psychiatric care along with follow up with primary care provider. -Patient counseled on abstaining from recreational drugs and marijuana and alcohol. Was informed/educated on the adverse effects on their physical and mental health. Patient verbally agreed and understood. Patient was offered substance abuse treatment however declined at this time. -Patient was instructed to return to the hospital or seek immediate medical care if their psychiatric or medical symptoms do worsen or reoccur. Allergies Allergy/AdvReac Type Severity Reaction Status Date / Time No Known Allergies Allergy Verified 11/07/22 00:25 Laboratory Results WBC 8.3 k/uL (3.8-10.6) 11/07/22 07:09 RBC 5.08 m/uL (4.30-5.90) 11/07/22 07:09 Hgb 15.9 gm/dL (13.0-17.5) 11/07/22 07:09 Hct 44.5 % (39.0-53.0) 11/07/22 07:09 MCV 87.5 fL (80.0-100.0) 11/07/22 07:09 MCH 31.2 pg (25.0-35.0) 11/07/22 07:09 MCHC 35.6 g/dL (31.0-37.0) 11/07/22 07:09 RDW 13.0 % (11.5-15.5) 11/07/22 07:09 Plt Count 280 k/uL (150-450) 11/07/22 07:09 MPV 8.0 11/07/22 07:09 Neutrophils % 62 % 11/07/22 07:09 Lymphocytes % 30 % 11/07/22 07:09 Monocytes % 5 % 11/07/22 07:09 Eosinophils % 1 % 11/07/22 07:09 Basophils % 0 % 11/07/22 07:09 Neutrophils # 5.1 k/uL (1.3-7.7) 11/07/22 07:09 Lymphocytes # 2.5 k/uL (1.0-4.8) 11/07/22 07:09 Monocytes # 0.4 k/uL (0-1.0) 11/07/22 07:09 Eosinophils # 0.1 k/uL (0-0.7) 11/07/22 07:09 Basophils # 0.0 k/uL (0-0.2) 11/07/22 07:09 Sodium 143 mmol/L (137-145) 11/07/22 07:09 Potassium 4.4 mmol/L (3.5-5.1) 11/07/22 07:09 Chloride 105 mmol/L (98-107) 11/07/22 07:09 Carbon Dioxide 27 mmol/L (22-30) 11/07/22 07:09 Anion Gap 11 mmol/L 11/07/22 07:09 BUN 9 mg/dL (9-20) 11/07/22 07:09 Creatinine 0.78 mg/dL (0.66-1.25) 11/07/22 07:09 Est GFR (CKD-EPI)AfAm >90 (>60 ml/min/1.73 sqM) 11/07/22 07:09 Est GFR (CKD-EPI)NonAf >90 (>60 ml/min/1.73 sqM) 11/07/22 07:09 Glucose 100 mg/dL (74-99) H 11/07/22 07:[address] Glu mg/dL 108 11/07/22 07:09 Hemoglobin A1c 5.4 % (0.0-6.0) 11/07/22 07:09 Calcium 9.5 mg/dL (8.4-10.2) 11/07/22 07:09 Total Bilirubin 0.8 mg/dL (0.2-1.3) 11/07/22 07:09 AST 29 U/L (17-59) 11/07/22 07:09 ALT 37 U/L (4-49) 11/07/22 07:09 Alkaline Phosphatase 115 U/L (38-126) 11/07/22 07:09 Total Protein 7.3 g/dL (6.3-8.2) 11/07/22 07:09 Albumin 4.5 g/dL (3.5-5.0) 11/07/22 07:09 Triglycerides 114.00 mg/dL (0.00-149.00) 11/07/22 07:09 Cholesterol 158.00 mg/dL (0.00-200.00) 11/07/22 07:09 LDL Cholesterol, Calc 80.7 mg/dL (0.0-131.0) 11/07/22 07:09 VLDL Cholesterol, Calc 22.80 mg/dL (5.00-40.00) 11/07/22 07:09 HDL Cholesterol 54.50 mg/dL (40.00-60.00) 11/07/22 07:09 Cholesterol/HDL Ratio 2.90 Ratio 11/07/22 07:09 TSH 1.090 mIU/L (0.465-4.680) 11/07/22 07:09 Urine Color Light Yellow 11/06/22 14:20 Urine Appearance Clear (Clear) 11/06/22 14:20 Urine pH 7.5 (5.0-8.0) 11/06/22 14:20 Ur Specific [place] 1.006 (1.001-1.035) 11/06/22 14:20 Urine Protein Negative (Negative) 11/06/22 14:20 Urine Glucose (UA) Negative (Negative) 11/06/22 14:20 Urine Ketones Negative (Negative) 11/06/22 14:20 Urine Blood Negative (Negative) 11/06/22 14:20 Urine Nitrite Negative (Negative) 11/06/22 14:20 Urine Bilirubin Negative (Negative) 11/06/22 14:20 Urine Urobilinogen <2.0 mg/dL (<2.0) 11/06/22 14:20 Ur Leukocyte Esterase Negative (Negative) 11/06/22 14:20 Urine Opiates Screen Not Detected (NotDetected) 11/06/22 14:20 Ur Oxycodone Screen Not Detected (NotDetected) 11/06/22 14:20 Urine Methadone Screen Not Detected (NotDetected) 11/06/22 14:20 Ur Propoxyphene Screen Not Detected (NotDetected) 11/06/22 14:20 Ur Barbiturates Screen Not Detected (NotDetected) 11/06/22 14:20 U Tricyclic Antidepress Not Detected (NotDetected) 11/06/22 14:20 Ur Phencyclidine Scrn Not Detected (NotDetected) 11/06/22 14:20 Ur Amphetamines Screen Not Detected (NotDetected) 11/06/22 14:20 U Methamphetamines Scrn Not Detected (NotDetected) 11/06/22 14:20 U Benzodiazepines Scrn Not Detected (NotDetected) 11/06/22 14:20 Urine Cocaine Screen Not Detected (NotDetected) 11/06/22 14:20 U Marijuana (THC) Screen Detected (NotDetected) H 11/06/22 14:20 Coronavirus (PCR) Not Detected (Not Detectd) 11/06/22 18:41 Vital Signs Temp 98.7 F 11/14/22 06:56 Pulse 86 11/14/22 06:56 Resp 14 11/14/22 06:56 BP 131/84 11/14/22 06:56 Pulse Ox 98 11/14/22 06:56 FiO2 Patient Condition at Discharge: Stable Plan - Discharge Summary Discharge Rx Participant: Yes New Discharge Prescriptions: New ARIPiprazole [Abilify] 10 mg PO DAILY 13 Days #13 tab ARIPiprazole IM SYRINGE [Abilify Maintena Syringe] 400 mg IM QMONTHLY #1 each hydrOXYzine pamoate [Vistaril] 50 mg PO BID PRN 30 Days #60 cap PRN Reason: anxiety traZODone HCL [Desyrel] 25 mg PO HS PRN 30 Days #15 tab PRN Reason: Insomnia Nicotine 14Mg/24Hr Patch [Habitrol] 1 patch TRANSDERM DAILY 14 Days #14 patch Discharge Medication List ARIPiprazole IM SYRINGE [Abilify Maintena Syringe] 400 mg IM QMONTHLY #1 each 11/14/22 [Rx] ARIPiprazole [Abilify] 10 mg PO DAILY 13 Days #13 tab 11/14/22 [Rx] Nicotine 14Mg/24Hr Patch [Habitrol] 1 patch TRANSDERM DAILY 14 Days #14 patch 11/14/22 [Rx] hydrOXYzine pamoate [Vistaril] 50 mg PO BID PRN 30 Days #60 cap 11/14/22 [Rx] traZODone HCL [Desyrel] 25 mg PO HS PRN 30 Days #15 tab 11/14/22 [Rx] Follow up Appointment(s)/Referral(s): [facility] [Outside] - 11/19/22 1:00 pm (with Celena) Bernardo Fung MD [Primary Care Provider] - 1-2 days Activity/Diet/Wound Care/Special Instructions: Avoid the use of street drugs and alcohol. Take all medications as prescribed. When you are in need of refills on your medications, please contact your medical provider and/or outpatient psychiatrist to have this done. Please go to scheduled outpatient appointments for aftercare treatment. If symptoms return or become worse, call the crisis line at and/or go to the nearest emergency room for evaluation. Discharge Disposition: HOME SELF-CARE
== END 2022-11-14 13:35 | disposition home or self-care (01) | DRG 750 ==
LOC: EC 13:35 → 3MHU 22:39
PROVIDERS: ADMIT Psychiatry & Neurology Psychiatry; ATTEND Psychiatry & Neurology Psychiatry
DX: F25.1 Schizoaffective disorder, depressive type (principal); E66.9 Obesity, unspecified; F17.210 Nicotine dependence, cigarettes, uncomplicated; F41.9 Anxiety disorder, unspecified; R63.0 Anorexia; Z20.822 Contact with and (suspected) exposure to COVID-19; Z68.31 Body mass index [BMI] 31.0-31.9, adult; Z81.8 Family history of other mental and behavioral disorders; Z63.0 Problems in relationship with spouse or partner
CPT/HCPCS: 80053; 80061; 80306; 81003; 82075; 83036; 84443; 85025; 87635; 99285

== ENCOUNTER 2024-02-08 19:17 | Inpatient (IN) | payer BC, OTHER ==
--- NOTE | 2024-02-08 19:36 | ED ---
General Adult HPI - General Chief complaint: Psychiatric Symptoms Stated complaint: mental health Time Seen by Provider: 02/08/24 19:28 Source: patient, family, RN notes reviewed Mode of arrival: ambulatory Limitations: no limitations - History of Present Illness Initial comments: Patient is a 28-year-old male presenting to the emergency department for mental health evaluation. Patient states he has been more depressed with increased dressers over the past few weeks. Patient did have some suicidal ideation however none at this time. No plan. No homicidal thoughts. Patient admits to having some anxiety as well. Patient did hear some sounds at 1 point and unclear what those were. No other hallucinations. No alcohol or street drug use. - Related Data Previous Rx's Medication Instructions Recorded ARIPiprazole IM SYRINGE [Abilify 400 mg IM QMONTHLY #1 each 11/14/22 Maintena Syringe] ARIPiprazole [Abilify] 10 mg PO DAILY 13 Days #13 tab 11/14/22 Nicotine 14Mg/24Hr Patch [Habitrol] 1 patch TRANSDERM DAILY 14 Days 11/14/22 #14 patch hydrOXYzine pamoate [Vistaril] 50 mg PO BID PRN 30 Days #60 cap 11/14/22 traZODone HCL [Desyrel] 25 mg PO HS PRN 30 Days #15 tab 11/14/22 Allergies Allergy/AdvReac Type Severity Reaction Status Date / Time No Known Allergies Allergy Verified 11/07/22 00:25 Review of Systems ROS Statement: Those systems with pertinent positive or pertinent negative responses have been documented in the HPI. ROS Other: All systems not noted in ROS Statement are negative. Constitutional: Denies: fever Eyes: Denies: eye pain ENT: Denies: ear pain Cardiovascular: Denies: chest pain Endocrine: Denies: fatigue Gastrointestinal: Denies: abdominal pain Psychiatric: Reports: as per HPI, anxiety, depression Past Medical History Past Medical History: No Reported History, Hypertension History of Any Multi-Drug Resistant Organisms: None Reported Additional Past Surgical History / Comment(s): left hip dislocation @ approximately 11 years old Past Anesthesia/Blood Transfusion Reactions: Unable to Obtain Past Psychological History: Anxiety Smoking Status: Current every day smoker, Vaper Past Alcohol Use History: Daily Past Drug Use History: None Reported, Marijuana General Exam Limitations: no limitations General appearance: alert, in no apparent distress Head exam: Present: normocephalic Eye exam: Present: normal appearance Neck exam: Present: normal inspection Respiratory exam: Present: normal lung sounds bilaterally Cardiovascular Exam: Present: regular rate, normal rhythm GI/Abdominal exam: Present: soft. Absent: tenderness Extremities exam: Present: normal inspection Neurological exam: Present: alert Psychiatric exam: Present: anxious Skin exam: Present: normal color Course Vital Signs 02/08/24 19:19 Temperature 97.6 F Pulse Rate 96 Respiratory 16 Rate Blood Pressure 151/109 O2 Sat by Pulse 99 Oximetry Medical Decision Making - Medical Decision Making Was pt. sent in by a medical professional or institution (, PA, MARRIAGE THERAPIST, urgent care, hospital, or fci...) When possible be specific @ -No Did you speak to anyone other than the patient for history (EMS, parent, family, police, friend...)? What history was obtained from this source @ -Family is present and helps provide history including patient's symptoms as he is reluctant to provide history Did you review nursing and triage notes (agree or disagree)? Why? @ -I reviewed and agree with nursing and triage notes Were old charts reviewed (outside hosp., previous admission, EMS record, old EKG, old radiological studies, urgent care reports/EKG's, fci records)? Report findings @ -No old charts were reviewed Differential Diagnosis (chest pain, altered mental status, abdominal pain women, abdominal pain men, vaginal bleeding, weakness, fever, dyspnea, syncope, headache, dizziness, GI bleed, back pain, seizure, CVA, palpatations, mental health, musculoskeletal)? @ -Differential Mental Health Depression, anxiety, bipolar, psychosis, schizophrenia, borderline personality, situational depression, adjustment disorder, behavioral disorder, brain tumor, malingering, substance abuse, encephalopathy, medication reaction, dementia, hypothyroidism, degenerative neurologic disorder, lupus.... This is not meant to be all-inclusive list EKG interpreted by me (3pts min.). @ -As above X-rays interpreted by me (1pt min.). @ -None done CT interpreted by me (1pt min.). @ -None done U/S interpreted by me (1pt. min.). @ -None done What testing was considered but not performed or refused? (CT, X-rays, U/S, labs)? Why? @ -None What meds were considered but not given or refused? Why? @ -None Did you discuss the management of the patient with other professionals (professionals i.e. , PA, MARRIAGE THERAPIST, lab, RT, psych nurse, social media intern, cap machine operator, teacher, house officer, wrapper caser)? Give summary @ -Case discussed with mental health nurse agree with plans for admission Was smoking cessation discussed for >3mins.? @ -No Was critical care preformed (if so, how long)? @ -No Were there social determinants of health that impacted care today? How? (Homelessness, low income, unemployed, alcoholism, drug addiction, transportat ion, low edu. Level, literacy, decrease access to med. care, [place] [facility], rehab)? @ -No Was there de-escalation of care discussed even if they declined (Discuss DNR or withdrawal of care, Hospice)? DNR status @ -No What co-morbidities impacted this encounter? (DM, HTN, Smoking, COPD, CAD, Cancer, CVA, ARF, Chemo, Hep., AIDS, mental health diagnosis, sleep apnea, morbid obesity)? @ -None Was patient admitted / discharged? Hospital course, mention meds given and route, prescriptions, significant lab abnormalities, going to OR and other pertinent info. @ -Patient presents with depression and suicidal ideation. Positive clinical certificate completed. Patient will be admitted for psychiatric care Undiagnosed new problem with uncertain prognosis? @ -No Drug Therapy requiring intensive monitoring for toxicity (Heparin, Nitro, Insulin, Cardizem)? @ -No Were any procedures done? @ -No Diagnosis/symptom? @ -Depression, suicidal ideation Acute, or Chronic, or Acute on Chronic? @ -Acute, acute Uncomplicated (without systemic symptoms) or Complicated (systemic symptoms)? @ -Default Side effects of treatment? @ -No Exacerbation, Progression, or Severe Exacerbation? @ -No Poses a threat to life or bodily function? How? (Chest pain, [place], [place], pneumonia, PE, COPD, DKA, ARF, appy, cholecystitis, CVA, Diverticulitis, Homicidal, Suicidal, threat to staff... and all critical care pts) @ -Threat to life Disposition Clinical Impression: Depression, Suicidal ideation Disposition: TRANSFER TO PSYCH HOSP/UNIT Is patient prescribed a controlled substance at d/c from ED?: No Referrals: Marcelo Fung MD [Primary Care Provider] - 1-2 days Time of Disposition: 21:22
[2024-02-08 23:27] LABS: Amphetamine Screen,Urine Not Detected (NotDetected); Benzodiazepines Screen,Urine Not Detected (NotDetected); Cocaine Screen,Urine Not Detected (NotDetected); Methadone Screen, Urine Not Detected (NotDetected); Opiate Screen,Urine Not Detected (NotDetected); Phencyclidine Screen,Urine Not Detected (NotDetected); Tricyclic Antidepressant,Urine Not Detected (NotDetected); Urn Cannabinoid Scrn Detected (NotDetected)
[2024-02-08 23:28] LABS: Barbiturate Screen,Urine Not Detected (NotDetected); Oxycodone Screen, Urine Not Detected (NotDetected)
[2024-02-08] MEDS ORDERED: ACETAMINOPHEN TAB 325 MG TAB PO PRN (23:42)
[2024-02-08] MEDS ORDERED: LORazepam 1 MG TAB PO PRN (23:42)
[2024-02-08] MEDS ORDERED: IBUPROFEN 600 MG TAB PO PRN (23:42)
[2024-02-08] MEDS ORDERED: HALOPERIDOL LACTATE 5 MG/ML 1 ML VIAL IM PRN (23:42)
[2024-02-08] MEDS ORDERED: LORazepam 2 MG/ML INJ IM PRN (23:42)
[2024-02-08] MEDS ORDERED: haloperidoL 5 MG TAB PO PRN (23:42)
[2024-02-09] MEDS ORDERED: traZODone HCL 50 MG TAB PO PRN
[2024-02-09] MEDS: LORazepam 1 MG TAB PO STA (04:34)
[2024-02-09] MEDS ORDERED: MAG HYDROX/AL HYDROX/SIMETH 355 ML BOTTLE PO PRN (08:00)
[2024-02-09] MEDS ORDERED: MAGNESIUM HYDROXIDE 2,400 MG/30 ML CUP PO PRN (09:00)
[2024-02-09] MEDS: NICOTINE 14MG/24HR PATCH TRANSDERM SCH (10:08)
[2024-02-09 10:10] LABS: ALT 59 U/L (4-49); AST 47 U/L (17-59); African American GFR (CKD) >90 (>60 ml/min/1.73 sqM); Albumin 4.4 g/dL (3.5-5.0); Alkaline Phosphatase 106 U/L (38-126); Anion Gap 9 mmol/L; Bilirubin, Delta 0.3 mg/dL (0.0-0.2); Bilirubin,Unconjugated 1.2 mg/dL (0.0-1.1); Blood Urea Nitrogen 5 mg/dL (9-20); Calcium 9.4 mg/dL (8.4-10.2); Carbon Dioxide 25 mmol/L (22-30); Chloride 105 mmol/L (98-107); Glucose 98 mg/dL (74-99); Non-African American GFR(CKD) >90 (>60 ml/min/1.73 sqM); Potassium 3.9 mmol/L (3.5-5.1); Sodium 139 mmol/L (137-145); Total Bilirubin 1.5 mg/dL (0.2-1.3); Total Protein 7.2 g/dL (6.3-8.2)
[2024-02-09 10:22] LABS: Basophils % (A) 1 %; Eosinophils # (A) 0.1 k/uL (0-0.7); Eosinophils % (A) 1 %; HCT 46.8 % (39.0-53.0); HGB 15.8 gm/dL (13.0-17.5); Lymphocytes # (A) 2.3 k/uL (1.0-4.8); Lymphocytes % (A) 30 %; MCH 31.2 pg (25.0-35.0); MCHC 33.7 g/dL (31.0-37.0); MCV 92.5 fL (80.0-100.0); Mean Platelet Volume 8.9; Monocytes # (A) 0.5 k/uL (0-1.0); Monocytes % (A) 6 %; Neutrophils # (A) 4.7 k/uL (1.3-7.7); Neutrophils % (A) 61 %; Platelet Count 206 k/uL (150-450); RBC 5.06 m/uL (4.30-5.90); RDW 12.6 % (11.5-15.5); WBC 7.8 k/uL (3.8-10.6)
--- NOTE | 2024-02-09 14:34 | P.HP ---
Psychiatric H&P - . History & Physical: Allergies Allergy/AdvReac Type Severity Reaction Status Date / Time No Known Allergies Allergy Verified 02/09/24 01:09 Vital Signs Temp 97.3 F L 02/09/24 00:46 Pulse 65 02/09/24 00:46 Resp 18 02/09/24 00:46 BP 141/93 02/09/24 00:46 Pulse Ox 99 02/09/24 00:46 FiO2 Intake & Output 02/08/24 02/09/24 02/09/24 18:59 06:59 18:59 Weight 100.607 kg Laboratory Last Values WBC 7.8 k/uL (3.8-10.6) 02/09/24 08:42 RBC 5.06 m/uL (4.30-5.90) 02/09/24 08:42 Hgb 15.8 gm/dL (13.0-17.5) 02/09/24 08:42 Hct 46.8 % (39.0-53.0) 02/09/24 08:42 MCV 92.5 fL (80.0-100.0) 02/09/24 08:42 MCH 31.2 pg (25.0-35.0) 02/09/24 08:42 MCHC 33.7 g/dL (31.0-37.0) 02/09/24 08:42 RDW 12.6 % (11.5-15.5) 02/09/24 08:42 Plt Count 206 k/uL (150-450) 02/09/24 08:42 MPV 8.9 02/09/24 08:42 Neutrophils % 61 % 02/09/24 08:42 Lymphocytes % 30 % 02/09/24 08:42 Monocytes % 6 % 02/09/24 08:42 Eosinophils % 1 % 02/09/24 08:42 Basophils % 1 % 02/09/24 08:42 Neutrophils # 4.7 k/uL (1.3-7.7) 02/09/24 08:42 Lymphocytes # 2.3 k/uL (1.0-4.8) 02/09/24 08:42 Monocytes # 0.5 k/uL (0-1.0) 02/09/24 08:42 Eosinophils # 0.1 k/uL (0-0.7) 02/09/24 08:42 Basophils # 0.0 k/uL (0-0.2) 02/09/24 08:42 Sodium 139 mmol/L (137-145) 02/09/24 08:42 Potassium 3.9 mmol/L (3.5-5.1) 02/09/24 08:42 Chloride 105 mmol/L (98-107) 02/09/24 08:42 Carbon Dioxide 25 mmol/L (22-30) 02/09/24 08:42 Anion Gap 9 mmol/L 02/09/24 08:42 BUN 5 mg/dL (9-20) L 02/09/24 08:42 Creatinine 0.64 mg/dL (0.66-1.25) L 02/09/24 08:42 Est GFR (CKD-EPI)AfAm >90 (>60 ml/min/1.73 sqM) 02/09/24 08:42 Est GFR (CKD-EPI)NonAf >90 (>60 ml/min/1.73 sqM) 02/09/24 08:42 Glucose 98 mg/dL (74-99) 02/09/24 08:[address] Glu mg/dL 108 mg/dL 02/09/24 08:42 Hemoglobin A1c 5.4 % (<=6.0) 02/09/24 08:42 Calcium 9.4 mg/dL (8.4-10.2) 02/09/24 08:42 Total Bilirubin 1.5 mg/dL (0.2-1.3) H 02/09/24 08:42 Conjugated Bilirubin 0.0 mg/dL (0.0-0.3) 02/09/24 08:42 Unconjugated Bilirubin 1.2 mg/dL (0.0-1.1) H 02/09/24 08:42 Delta Bilirubin 0.3 mg/dL (0.0-0.2) H 02/09/24 08:42 AST 47 U/L (17-59) 02/09/24 08:42 ALT 59 U/L (4-49) H 02/09/24 08:42 Alkaline Phosphatase 106 U/L (38-126) 02/09/24 08:42 Total Protein 7.2 g/dL (6.3-8.2) 02/09/24 08:42 Albumin 4.4 g/dL (3.5-5.0) 02/09/24 08:42 TSH 1.250 mIU/L (0.465-4.680) 02/09/24 08:42 Urine Opiates Screen Not Detected (NotDetected) 02/08/24 22:45 Ur Oxycodone Screen Not Detected (NotDetected) 02/08/24 22:45 Urine Methadone Screen Not Detected (NotDetected) 02/08/24 22:45 Ur Barbiturates Screen Not Detected (NotDetected) 02/08/24 22:45 U Tricyclic Antidepress Not Detected (NotDetected) 02/08/24 22:45 Ur Phencyclidine Scrn Not Detected (NotDetected) 02/08/24 22:45 Ur Amphetamines Screen Not Detected (NotDetected) 02/08/24 22:45 U Methamphetamines Scrn Not Detected (NotDetected) 02/08/24 22:45 U Benzodiazepines Scrn Not Detected (NotDetected) 02/08/24 22:45 Urine Cocaine Screen Not Detected (NotDetected) 02/08/24 22:45 U Marijuana (THC) Screen Detected (NotDetected) H 02/08/24 22:45 Influenza Type A (PCR) Not Detected (Not Detectd) 02/08/24 21:31 Influenza Type B (PCR) Not Detected (Not Detectd) 02/08/24 21:31 RSV (PCR) Not Detected (Not Detectd) 02/08/24 21:31 SARS-CoV-2 (PCR) Not Detected (Not Detectd) 02/08/24 21:31 IDENTIFYING DATA: Patient is a 28 yo male, who is admitted for psychosis HPI: per chart, patient presented for depression and suicidal ideations. He was petitioned by family for paranoia, aggression, suicidal thoughts, and med noncompliance. On interview, patient states "a lot has been going on in general" he states that his family brought him in for erratic behavior throughout the conversation sedation, he states that he does not want medications, patient was very internally preoccupied and had thought blocking. He was also disorganized. As a result it was difficult to obtain a full history PAST PSYCHIATRIC HISTORY: schizoaffective disorder: Depressed type. Was admitted last year for psychosis due to noncompliance and was discharged on Abilify maintained. history below obtained from H and P last year Past Medical History: No Reported History History of Any Multi-Drug Resistant Organisms: None Reported Additional Past Surgical History / Comment(s): left hip, Past Psychological History: Anxiety Smoking Status: Current every day smoker Past Alcohol Use History: Daily Past Drug Use History: None Reported, Marijuana ALLERGIES: as per EMR CHEMICAL DEPENDENCY HISTORY: as per HPI FAMILY PSYCHIATRIC/SUBSTANCE USE HISTORY: Claims it is sister has bipolar disorder he believes SOCIAL HISTORY: Patient was born and raised in [place] and states that his family "moved around" and he now resides in [place]. He states that he lives with his and 1 child in a house. He claims that he worked for a [employer]. He claims that he completed high school, denies any legal history. MENTAL STATUS EXAM: General Appearance: [id number] overweight male who appears older than stated age, black hair, wearing glasses. Behavior: Patient is seated without any agitated behavior. Difficult to redirect at times. Speech: Patient's speech is fluent and nonpressured. Monotone and concrete Mood/Affect: Patient reports their mood is mainly anxious, affect is congruent and constricted. Suicidality/Homicidality: Patient denies having any homicidal ideation intent or plan. Denies any suicidal ideations intent or plan Perceptions: Patient denies any visual hallucinations and denies any auditory hallucinations. internally preoccupied. Thought blocking. Though content/process: organized.[place], poverty of content. No delusions or paranoia elicited. Memory and concentration: AOX3, grossly intact for the purposes of this session. Judgment and insight: poor STRENGTHS/WEAKNESSES: strength is that patient is resilient. Weakness is that patient has poor judgment and is impulsive INTELLECT: average IMPRESSIONS: Schizoaffective disorder, depressive type Cannabis use disorder Nicotine dependence PLAN: -Patient is admitted under voluntary status to MHU for stabilization of psychiatric symptoms and safety. Will complete second cert -Medications : Will start patient on Abilify 10 mg daily for mood stabilization/psychosis -Ativan and Haldol PRN for agitation/aggression -Patient was counselled on substance abuse and desired to cut back on use -Patient was informed of the risks, benefits and side effects of the medication and patient verbally consented to taking the medications. Patient signed med consent form and was placed in chart. -Internal Medicine consult to perform medical evaluation and physical. -NRT - nicotine patch -SW on board for discharge planning. Encourage patient to participate in groups to work on coping skills
[2024-02-09] MEDS: ARIPiprazole 10 MG TAB PO SCH (14:38)
[2024-02-10 07:56] LABS: LDL Cholesterol,Calculated 66.1 mg/dL (0.0-131.0)
--- NOTE | 2024-02-10 11:51 | P.PN ---
Progress Note - Text Progress Note Date: 02/10/24 Interval History: Patient was seen sitting in the back sandoval and was directable and agreeable to speak with conventional underwriter in the office.Patient is quite hesitant in his answers, long pauses and thought blocking. He states he has been trying to find a decent job, since his kicked him out recently. Patient has been observed responding to internal stimuli by nursing staff. Patient is tangential, speaking about how he feels he was the cause of covid in 2019, and that he is a plague everywhere he goes. During the conversation, the patient presents as thought blocking. He states he does not like taking medications. He endorses poor sleep. He claims that his appetite is ok. At this time patient denies any suicidal or homicidal ideations, intent or plan. Patient denies any auditory, visual hallucinations and denies any paranoia or delusions. Patient denies any side effects from the medications and has been compliant with meds. MENTAL STATUS EXAM: General Appearance: [id number] overweight male who appears older than stated age, black hair, wearing glasses. Behavior: Patient is seated without any agitated behavior. Difficult to redirect at times. Speech: Patient's speech is fluent and nonpressured. Monotone and concrete, tangential Mood/Affect: Patient reports their mood is depressed, affect is congruent and constricted. Suicidality/Homicidality: Patient denies having any homicidal ideation intent or plan. Denies any suicidal ideations intent or plan Perceptions: Patient denies any visual hallucinations and denies any auditory hallucinations. internally preoccupied. Thought blocking. Though content/process: organized.[place], poverty of content. tangential. minimizing need for treatment. Memory and concentration: AOX3, grossly intact for the purposes of this session. Judgment and insight: poor IMPRESSIONS: Schizoaffective disorder, depressive type Cannabis use disorder Nicotine dependence PLAN: -Patient is admitted under voluntary status to MHU for stabilization of psychiatric symptoms and safety. a second cert was completed and faxed to the court -Medications : Abilify 10 mg daily for mood stabilization/psychosis add trazodone 25mg qhs for sleep, add Zoloft 50mg qhs for mood/anxiety -Ativan and Haldol PRN for agitation/aggression -NRT - nicotine patch -SW on board for discharge planning. Encourage patient to participate in groups to work on coping skills. Will await deferral/hearing.
[2024-02-10] MEDS: SERTRALINE 50 MG TAB PO SCH (20:18)
[2024-02-10] MEDS: traZODone HCL 50 MG TAB PO SCH (20:18)
--- NOTE | 2024-02-11 11:20 | P.PN ---
Progress Note - Text Progress Note Date: 02/11/24 Interval History: Patient was seen sitting in the lounge and was directable and agreeable to speak with engineering writer in the office. Patient states he does not like how the medication makes him feel, and he states that he has tried multiple antipsychotics, and he feels that they do not do what they should do for him, and he does not like them. Guard Supervisor spoke to patient about several different options. patient continues to be responding to internal stimuli and gazing around the room. he also continues to have thought blocking. He states that he did sleep well last night, and he endorses a poor appetite today. Patient was asking about the court process, engineering writer explained the court process, and the deferral process. Patient verbalized understanding. Patient presents as internally preoccupied. Hesitant. At this time patient denies any suicidal or homicidal ideations, intent or plan. Patient denies any auditory, visual hallucinations and denies any paranoia or delusions. Patient denies any side effects from the medications and has been compliant with meds. MENTAL STATUS EXAM: General Appearance: 28-year-old overweight male who appears older than stated age, black hair, wearing glasses. Behavior: Patient is seated without any agitated behavior. Hesitant Speech: Patient's speech is fluent and nonpressured. Monotone and concrete Mood/Affect: Patient reports their mood is depressed, affect is congruent and constricted. Suicidality/Homicidality: Patient denies having any homicidal ideation intent or plan. Denies any suicidal ideations intent or plan Perceptions: Patient denies any visual hallucinations and denies any auditory hallucinations. internally preoccupied. Thought blocking. Though content/process: organized.[place], poverty of content. minimizing need for treatment. Memory and concentration: AOX3, grossly intact for the purposes of this session. Judgment and insight: poor IMPRESSIONS: Schizoaffective disorder, depressive type Cannabis use disorder Nicotine dependence PLAN: -Patient is admitted under voluntary status to MHU for stabilization of p sychiatric symptoms and safety. a second cert was completed and faxed to the court -Medications : d/c Abilify due to likely ineffectiveness, add Prolixin 2mg bid for mood stabilization/psychosis, trazodone 25mg qhs for sleep, Zoloft 50mg qhs for mood/anxiety -Ativan and Haldol PRN for agitation/aggression -NRT - nicotine patch -SW on board for discharge planning. Encourage patient to participate in groups to work on coping skills. Will await deferral/hearing.
[2024-02-12] MEDS ORDERED: LORazepam 1 MG TAB PO PRN (10:21)
--- NOTE | 2024-02-12 10:56 | P.PN ---
Progress Note - Text Progress Note Date: 02/12/24 Interval History: Patient was seen sitting in the lounge and was directable and agreeable to speak with flex o writer operator in the office. Patient states he feels "alright, I guess". He states that he does not like the medication, it gives him a headache, so he does not want to take it. He states that he has been going to some groups, and trying to participate. He states that he did sleep well last night, he endorses a poor appetite. Patient is adamant on not taking antipsychotics. He is refusing. Will have social work file a demand. Patient continues to present as internally preoccupied. continues to have very poor insight and judgment into his mental illness and need for medications. he is Hesitant. At this time patient denies any suicidal or homicidal ideations, intent or plan. Patient denies any auditory, visual hallucinations and denies any paranoia or delusions. Patient denies any side effects from the medications and has not been compliant with meds. MENTAL STATUS EXAM: General Appearance: 28-year-old overweight male who appears older than stated age, black hair, wearing glasses. Behavior: Patient is seated without any agitated behavior. Hesitant Speech: Patient's speech is fluent and nonpressured. Monotone and concrete Mood/Affect: Patient reports their mood is depressed, affect is congruent and constricted. Suicidality/Homicidality: Patient denies having any homicidal ideation intent or plan. Denies any suicidal ideations intent or plan Perceptions: Patient denies any visual hallucinations and denies any auditory hallucinations. internally preoccupied. Thought blocking. Though content/process: organized.[place], poverty of content. minimizing need for treatment. Memory and concentration: AOX3, grossly intact for the purposes of this session. Judgment and insight: poor IMPRESSIONS: Schizoaffective disorder, depressive type Cannabis use disorder Nicotine dependence PLAN: -Patient is admitted under voluntary status to MHU for stabilization of psychiatric symptoms and safety. a second cert was completed and faxed to the court -Medications : Prolixin 2mg bid for mood stabilization/psychosis, trazodone 25mg qhs for sleep, Zoloft 50mg qhs for mood/anxiety -Ativan and Haldol PRN for agitation/aggression -NRT - nicotine patch -SW on board for discharge planning. Encourage patient to participate in groups to work on coping skills. Patient did sign a deferral, however, has been refusing medications now. Will have SW file a demand.
[2024-02-12] MEDS: SERTRALINE 100 MG TAB PO SCH (20:43)
--- NOTE | 2024-02-13 11:38 | P.PN ---
Progress Note - Text Progress Note Date: 02/13/24 Interval History: Patient was seen sitting in the lounge and was directable and agreeable to speak with press writer in the office. Patient states he feels "alright, He is still refusing the prolixin. He states that he does not like what it does to him. He claims that he is going to some groups. Continues to have very poor insight and judgment into his mental illness and need for medications. He remains hesitant. At this time patient denies any suicidal or homicidal ideations, intent or plan. Patient denies any auditory, visual hallucinations and denies any paranoia or delusions. Patient denies any side effects from the medications and has not been compliant with meds. MENTAL STATUS EXAM: General Appearance: 28-year-old overweight male who appears older than stated age, black hair, wearing glasses. Behavior: Patient is seated without any agitated behavior. Hesitant Speech: Patient's speech is fluent and nonpressured. Monotone and concrete Mood/Affect: Patient reports their mood is depressed, affect is congruent and constricted. Suicidality/Homicidality: Patient denies having any homicidal ideation intent or plan. Denies any suicidal ideations intent or plan Perceptions: Patient denies any visual hallucinations and denies any auditory hallucinations. internally preoccupied. Thought blocking. Though content/process: organized.[place], poverty of content. minimizing need for treatment. Memory and concentration: AOX3, grossly intact for the purposes of this session. Judgment and insight: poor IMPRESSIONS: Schizoaffective disorder, depressive type Cannabis use disorder Nicotine dependence PLAN: -Patient is admitted under voluntary status to MHU for stabilization of psychiatric symptoms and safety. a second cert was completed and faxed to the court -Medications : Prolixin 2mg bid for mood stabilization/psychosis, trazodone 25mg qhs for sleep, Zoloft 50mg qhs for mood/anxiety -Ativan and Haldol PRN for agitation/aggression -NRT - nicotine patch -SW on board for discharge planning. Encourage patient to participate in groups to work on coping skills. Patient did sign a deferral initialy, however, has been refusing medications now. SW filed a demand. Hearing scheduled for 02/18
--- NOTE | 2024-02-14 10:25 | P.PN ---
Progress Note - Text Progress Note Date: 02/14/24 Interval History: Patient was seen sitting in the lounge and was directable and agreeable to speak with specification writer in the office. Patient states that he is alright. He is still refusing the prolixin. He states he would prefer to take a FELIX, so he don't have to remember to take the medication. [employer] told the patient that he has to start on the pills prior to getting a FELIX, to make sure he tolerates the medication. He claims that he is going to some groups. Continues to have very poor insight and judgment into his mental illness and need for medications. He states that he slept well last night, and his appetite is good. At this time patient denies any suicidal or homicidal ideations, intent or plan. Patient denies any auditory, visual hallucinations and denies any paranoia or delusions. Patient denies any side effects from the medications and has not been compliant with meds. MENTAL STATUS EXAM: General Appearance: 28-year-old overweight male who appears older than stated age, black hair, wearing glasses. Behavior: Patient is seated without any agitated behavior. Hesitant Speech: Patient's speech is fluent and nonpressured. Monotone and concrete Mood/Affect: Patient reports their mood is depressed, affect is congruent and constricted. Suicidality/Homicidality: Patient denies having any homicidal ideation intent or plan. Denies any suicidal ideations intent or plan Perceptions: Patient denies any visual hallucinations and denies any auditory hallucinations. internally preoccupied. Though content/process: organized.[place], poverty of content. minimizing need for treatment. Memory and concentration: AOX3, grossly intact for the purposes of this session. Judgment and insight: poor IMPRESSIONS: Schizoaffective disorder, depressive type Cannabis use disorder Nicotine dependence PLAN: -Patient is admitted under voluntary status to MHU for stabilization of psychiatric symptoms and safety. a second cert was completed and faxed to the court -Medications : Prolixin 2mg bid for mood stabilization/psychosis, trazodone 25mg qhs for sleep, Zoloft 50mg qhs for mood/anxiety. Patient refusing to take prolixin. -Ativan and Haldol PRN for agitation/aggression -NRT - nicotine patch -SW on board for discharge planning. Encourage patient to participate in groups to work on coping skills. Patient did sign a deferral initially, however, has been refusing medications now. SW filed a demand. Hearing scheduled for 02/18
--- NOTE | 2024-02-14 15:50 | P.CONS ---
History of Present Illness - Reason for Consult Consult date: 02/14/24 - History of Present Illness 28 year old M with PMH of hypertension presents to the ED for suicidal ideation. [facility] has been consulted for medical management of this patient. CBC, CMP, A1c, Lipid panel, TSH, UDS, COVID test reviewed significant for BUN 5, Cr 0.64, T. Bili 1.5, unconjugated bilirubin 1.2, delta bilirubin 0.3, ALT 59, + marijuana on UDS. Current vital signs BP 149/87, HR 78, T 97.7F, 98% on RA. Patient reports no complaints. Social drinker, 2 x / week. Former smoker. Previous marijuana abuse. General: non toxic, no distress, appears at stated age, flat affect Derm: warm, dry Head: atraumatic, normocephalic, symmetric Eyes: EOMI, no lid lag, anicteric sclera Mouth: no lip lesion, mucus membranes moist Cardiovascular: S1S2 reg, no murmur Lungs: CTA bilateral, no rhonchi, no rales , no accessory muscle use Ext: no gross muscle atrophy, no edema, no contractures Neuro: CN II-XII grossly intact. No focal neurologic deficits. Based on my assessment of this patient, this patient meets a moderate complexity level of care. Hypertension: Restart Lisinopril 10 mg PO QD. Mildly elevated total bilirubin and ALT Marijuana abuse: Advised to quit. Obesity: Advised weight loss and dietary modifications. CODE STATUS: FULL CODE DVT Prophylaxis: Early ambulation. GI Prophylaxis: I have reviewed the following security consultant notes: Psyc note. I have reviewed the results of the following tests: As above. I have ordered the following tests: UA pending. I have discussed the care of this patient with the following independent historian: I have independently interpreted the following test below: I have discussed the management of this patient with the following physician: I have seen and evaluated the patient today along side the resident. Past Medical History Past Medical History: No Reported History, Hypertension History of Any Multi-Drug Resistant Organisms: None Reported Additional Past Surgical History / Comment(s): left hip dislocation @ approximately 11 years old Past Anesthesia/Blood Transfusion Reactions: Unable to Obtain Smoking Status: Current every day smoker, Vaper Medications and Allergies Home Medications Medication Instructions Recorded Confirmed Type ARIPiprazole IM SYRINGE [Abilify 400 mg IM QMONTHLY #1 each 11/14/22 02/08/24 Rx Maintena Syringe] ARIPiprazole [Abilify] 10 mg PO DAILY 13 Days #13 tab 11/14/22 02/08/24 Rx Nicotine 14Mg/24Hr Patch [Habitrol] 1 patch TRANSDERM DAILY 14 Days 11/14/22 02/08/24 Rx #14 patch hydrOXYzine pamoate [Vistaril] 50 mg PO BID PRN 30 Days #60 cap 11/14/22 02/08/24 Rx traZODone HCL [Desyrel] 25 mg PO HS PRN 30 Days #15 tab 11/14/22 02/08/24 Rx Allergies Allergy/AdvReac Type Severity Reaction Status Date / Time No Known Allergies Allergy Verified 02/09/24 01:09 Physical Exam Vitals: Vital Signs Temp Pulse Resp BP Pulse Ox 02/14/24 06:00 97.7 F 78 19 149/87 98 Results CBC & Chem 7: 02/09/24 08:42 02/09/24 08:42
[2024-02-14] MEDS: lisinopriL 10 MG TAB PO SCH (15:57)
--- NOTE | 2024-02-15 13:19 | P.PN ---
Progress Note - Text Progress Note Date: 02/15/24 Interval history: Patient was seen bedside and was directable and agreeable to speak with administrative underwriter. He states that he is doing "fine". Patient is superficially cooperative to interview and does not discuss much. He states that he is compliant with medication and does not have any concerns. However, he refused Prolixin yesterday morning. He reports sleeping well and eating well. He endorses fair energy during the day. He denies other concerns. At this time patient denies any suicidal or homicidal ideations intent or plan. Denies any Auditory or visual hallucinations. Patient denies any side effects from the medications and has been compliant with meds. Mental status exam: General Appearance: Patient appears to be stated age is alert, directable, and superficially cooperative. Behavior: No agitated behavior. Patient is calm and directable Speech: Patient's speech is fluent and nonpressured. Mood/Affect: Mood is improving mildly, affect is congruent and constricted. Suicidality/Homicidality: Patient denies having any suicidal or homicidal ideation intent or plan. Perceptions: Patient denies any auditory or visual hallucinations. Though content/process: There is no evidence of any delusional thought content and thought process is linear and goal-directed. [place] Memory and concentration: AOX3, grossly intact for the purposes of this session Judgment and insight: Poor Assessment/Plan: Continue with current diagnosis. Patient continues to meet criteria for inpatient psychiatric admission for symptom stabilization and safety. Patient will be maintained on current psychotropic medication regimen. Monitor for medication compliance and for any psychotropic medication side effects. Will continue to monitor ongoing response to treatment. Encouraged participation in milieu.
--- NOTE | 2024-02-16 11:02 | P.PN ---
Progress Note - Text Progress Note Date: 02/16/24 Interval history: Patient was seen bedside and was directable and agreeable to speak with narrative writer. He states that he is doing "alright". He states that he is compliant with medication and does not have any concerns. He is hopeful that his medication compliance will mean he will not have to go to court. He states he understands the court proceedings as discussed with Dr. Yousif and his production quality manager. He had no questions regarding the procedure. He reports sleeping well and eating well. He endorses fair energy during the day. He denies other concerns. At this time patient denies any suicidal or homicidal ideations intent or plan. Denies any Auditory or visual hallucinations. Patient denies any side effects from the medications and has been compliant with meds. Mental status exam: General Appearance: Patient appears to be stated age is alert, directable, and superficially cooperative. Behavior: No agitated behavior. Patient is calm and directable Speech: Patient's speech is fluent and nonpressured. Mood/Affect: Mood is improving mildly, affect is congruent and constricted. Suicidality/Homicidality: Patient denies having any suicidal or homicidal ideation intent or plan. Perceptions: Patient denies any auditory or visual hallucinations. Though content/process: There is no evidence of any delusional thought content and thought process is linear and goal-directed. [place] Memory and concentration: AOX3, grossly intact for the purposes of this session Judgment and insight: Poor Assessment/Plan: Continue with current diagnosis. Patient continues to meet criteria for inpatient psychiatric admission for symptom stabilization and safety. Patient will be maintained on current psychotropic medication regimen. Monitor for medication compliance and for any psychotropic medication side effects. Will continue to monitor ongoing response to treatment. Encouraged participation in milieu.
--- NOTE | 2024-02-17 12:15 | P.PN ---
Progress Note - Text Progress Note Date: 02/17/24 Interval History: Patient was seen in his room, resting, and was directable and agreeable to sp margarette with appeals writer at the bedside. Patient states that he is alright. He has been taking the Prolixin he has been prescribed, and reports no side effects. He states that he is going to some groups. His insight remains fairly poor, claims that he is talking to his family and over the phone however did not specifiy what they are talking about. he asked more questions about court. claims that he did go to goal setting group this am. He states that he slept well last night, and his appetite is good. At this time patient denies any suicidal or homicidal ideations, intent or plan. Patient denies any auditory, visual hallucinations and denies any paranoia or delusions. Patient denies any side effects from the medications and has not been compliant with meds. MENTAL STATUS EXAM: General Appearance: 28-year-old overweight male who appears older than stated age, black hair, wearing glasses. Behavior: Patient is seated without any agitated behavior. Poor eye contact Speech: Patient's speech is fluent and nonpressured. Monotone and concrete, mildly improving Mood/Affect: Patient reports their mood is depressed, affect is congruent and constricted. Suicidality/Homicidality: Patient denies having any homicidal ideation intent or plan. Denies any suicidal ideations intent or plan Perceptions: Patient denies any visual hallucinations and denies any auditory hallucinations. internally preoccupied. Though content/process:[place], poverty of content. minimizing need for treatment, mildly improving. Memory and concentration: AOX3, grossly intact for the purposes of this session. Judgment and insight: poor, mildly improving IMPRESSIONS: Schizoaffective disorder, depressive type Cannabis use disorder Nicotine dependence PLAN: -Patient is admitted under voluntary status to [facility] for stabilization of psychiatric symptoms and safety. a second cert was completed and faxed to the court -Medications : Prolixin 2mg bid for mood stabilization/psychosis, trazodone 25mg qhs for sleep, Zoloft 50mg qhs for mood/anxiety. -Ativan and Haldol PRN for agitation/aggression -NRT - nicotine patch -SW on board for discharge planning. Encourage patient to participate in groups to work on coping skills. SW filed a demand. Hearing scheduled for 02/18
--- NOTE | 2024-02-18 11:11 | P.PN ---
Progress Note - Text Progress Note Date: 02/18/24 Interval History: Patient was seen in his the hallway, and was directable and agreeable to speak with ad writer in the office. Patient states that he is ok. He has been taking the medication, however, it has been making him sleepy during the day. This ad writer spoke with him about changing his medication to qhs, patient agreeable. Operation Specialist spoke with patient about his hearing tomorrow. Patient verbalized understanding. Patient remains concrete, and displays poor eye contact. He states that he slept well last night, and his appetite is good. At this time patient denies any suicidal or homicidal ideations, intent or plan. Patient denies any auditory, visual hallucinations and denies any paranoia or delusions. Patient denies any side effects from the medications and has been compliant with meds. MENTAL STATUS EXAM: General Appearance: 28-year-old overweight male who appears older than stated age, black hair, wearing glasses. Behavior: Patient is seated without any agitated behavior. Poor eye contact Speech: Patient's speech is fluent and nonpressured. Monotone and concrete, mildly improving Mood/Affect: Patient reports their mood is ok, affect is congruent and constricted. improving mildly Suicidality/Homicidality: Patient denies having any homicidal ideation intent or plan. Denies any suicidal ideations intent or plan Perceptions: Patient denies any visual hallucinations and denies any auditory hallucinations. Though content/process:[place], poverty of content. minimizing need for treatment, mildly improving. Memory and concentration: AOX3, grossly intact for the purposes of this session. Judgment and insight: poor, mildly improving IMPRESSIONS: Schizoaffective disorder, depressive type Cannabis use disorder Nicotine dependence PLAN: -Patient is admitted under voluntary status to [facility] for stabilization of psychiatric symptoms and safety. a second cert was completed and faxed to the court -Medications : change/increase Prolixin 5 mg qhs for mood stabilization/psychosis, trazodone 25mg qhs for sleep, Zoloft 50mg qhs for mood/anxiety. will transition onto FELIX to ensure compliance. -Ativan and Haldol PRN for agitation/aggression -NRT - nicotine patch -SW on board for discharge planning. Encourage patient to participate in groups to work on coping skills. SOFYA filed a demand. Hearing scheduled for 02/18, will need to transition onto FELIX.
--- NOTE | 2024-02-19 12:48 | P.PN ---
Progress Note - Text Progress Note Date: 02/19/24 Interval History: Patient is directable and agreeable to speak with gag writer via telehealth in cros s-coverage for Dr. Marsh. He understands he has been placed on a court order for psychiatric treatment at court this morning. His thoughts are logical. He denies auditory or visual hallucinations. He denies paranoid delusions today. He reports sleep last night was "alright" except for two nighttime awakenings but was able to return to sleep "pretty quickly". He states he still feels somewhat tired the next day. His appetite is good. At this time patient denies any suicidal or homicidal ideations, intent or plan. Patient denies any side effects from the medications, except for mild daytime tiredness, and has been compliant with meds. MENTAL STATUS EXAM: General Appearance: Overweight male who appears stated age, black hair, wearing glasses. Behavior: Patient is seated without any agitated behavior. Adequate eye contact Speech: Patient's speech is fluent and non-pressured. Monotone and concrete, mildly improving Mood/Affect: Patient reports their mood is ok, affect is congruent and constricted. Suicidality/Homicidality: Patient denies having any homicidal ideation intent or plan. Denies any suicidal ideations intent or plan. Perceptions: Patient denies any visual hallucinations and denies any auditory hallucinations. Though content/process: [place], coherent, mildly improving. Memory and concentration: AOX3, grossly intact for the purposes of this session. Judgment and insight: poor, mildly improving IMPRESSIONS: Schizoaffective disorder, depressive type Cannabis use disorder Nicotine dependence PLAN: -Patient is admitted under involuntary status to [facility] for stabilization of psychiatric symptoms and safety. a second cert was completed and faxed to the court. He was placed on a court order at court today 02/18. -Medications: Continue Prolixin 5 mg qhs for mood stabilization/psychosis, change trazodone 25mg qhs to 25 mg qhs PRN for sleep, continue Zoloft 100mg qhs for mood/anxiety. Plan transition onto FELIX to ensure compliance. -Ativan and Haldol PRN for agitation/aggression -NRT - nicotine patch -SW on board for discharge planning. Encourage patient to participate in groups to work on coping skills. Court order starting 02/18, will need to transition onto FELIX.
[2024-02-19] MEDS: traZODone HCL 50 MG TAB PO PRN (20:22)
[2024-02-20 08:18] VITALS: BMI 32.8
--- NOTE | 2024-02-20 12:33 | P.PN ---
Progress Note - Text Progress Note Date: 02/20/24 Interval History: Patient is directable and agreeable to speak with magnetic tape typewriter operator in the office today. He states he is feeling pretty good today. He remains having poor eye contact. Tax Associate asked patient if he understood what being on a court order meant. Patient verbalized understanding. We spoke of giving him a FELIX injection today, patient agreeable. He denies auditory or visual hallucinations. He denies paranoid delusions today. He reports sleep last night was pretty good. His appetite is good. At this time patient denies any suicidal or homicidal ideations, intent or plan. Patient denies any side effects from the medications, except for mild daytime tiredness, and has been compliant with meds. MENTAL STATUS EXAM: General Appearance: Overweight male who appears stated age, black hair, wearing glasses. Behavior: Patient is seated without any agitated behavior. Adequate eye contact Speech: Patient's speech is fluent and non-pressured. Monotone and concrete, mildly improving Mood/Affect: Patient reports their mood is ok, affect is congruent and constricted. Suicidality/Homicidality: Patient denies having any homicidal ideation intent or plan. Denies any suicidal ideations intent or plan. Perceptions: Patient denies any visual hallucinations and denies any auditory hallucinations. Though content/process: [place], coherent, mildly improving. Memory and concentration: AOX3, grossly intact for the purposes of this session. Judgment and insight: mildly improving IMPRESSIONS: Schizoaffective disorder, depressive type Cannabis use disorder Nicotine dependence PLAN: -Patient is admitted under involuntary status to [facility] for stabilization of psychiatric symptoms and safety. a second cert was completed and faxed to the court. He was placed on a court order at court 02/18. -Medications: Prolixin PO 5 mg qhs for mood stabilization/psychosis, trazodone 25 mg qhs PRN for sleep, Zoloft 100mg qhs for mood/anxiety. Add Prolixin D 12.5mg IM q14 days. First dose 02/19, next dose 03/05 -Ativan and Haldol PRN for agitation/aggression -NRT - nicotine patch -SW on board for discharge planning. Encourage patient to participate in groups to work on coping skills. Court order starting 02/18. Likely discharge tomorrow back home.
[2024-02-20] MEDS: fluPHENAZine DECANOATE 25 MG/ML 5ML MDV IM SCH (13:39)
[2024-02-21 06:02] VITALS: BP 116/77; PULSE 100; RESP 20; TEMP 97.6
--- NOTE | 2024-02-21 09:58 | P.DS ---
Providers Date of admission: 02/08/24 23:36 Expected date of discharge: 02/21/24 Attending physician: Dale Marsh MD Consults: 02/08/24 23:42 Consult Physician Routine Consulting Provider: Pura Ravi Consult Reason/Comments: H&P for medical Do you want consulting provider notified?: Yes Primary care physician: Marcelo Fung MD - Discharge Diagnosis(es) (1) Schizoaffective disorder, depressive type Current Visit: No Status: Acute Priority: High (2) Cannabis use disorder Current Visit: No Status: Acute Priority: Medium (3) Nicotine dependence Current Visit: No Status: Acute Priority: Low Hospital Course: Admission HPI: Admission note was completed by Dr Singh "per chart, patient presented for depression and suicidal ideations. He was petitioned by family for paranoia, aggression, suicidal thoughts, and med noncompliance. On interview, patient states "a lot has been going on in general" he states that his family brought him in for erratic behavior throughout the conversation sedation, he states that he does not want medications, patient was very internally preoccupied and had thought blocking. He was also disorganized. As a result it was difficult to obtain a full history" Hospital course: Upon admission to the unit patient was admitted involuntarily on a petition and certificate and a second certificate was completed and faxed with the courts. Patient ended up having a court hearing for mental health treatment and it resulted in a court order starting on 02/17. Patient got along well with other patients on the unit and followed unit protocol. Patient was compliant with the medications and denied any side effects throughout hospital course. Patient was started on Prolixin and increased to dose of 5 mg nightly for mood stabilization/psychosis, trazodone nightly as needed for sleep, Zoloft increased to dose of 100 mg nightly for mood/anxiety. Patient was agreeable to be transitioned onto Prolixin D given 12.5 mg IM q. 14 days first dose was given on 02/19 next dose will be due on 03/05 at [facility] to help ensure compliance. Patient spoke of his stressors and engaged in therapy both group and individual. Patient was also seen by medical team for history and physical exam. Throughout the course of the hospitalization patient gradually improved with regards to mood, anxiety, psychosis, sleep and returned back to their baseline level of functioning. On the day of discharge patient denied any suicidal or homicidal ideations intent or plan denied any auditory or visual hallucinations. Patient endorsed wanting to live for his health and family. The patient denied any access to guns or weapons. Patient denied any paranoia and did not endorse any delusions. Patient does have a significant history of substance abuse and was counseled on abstaining from all substances including alcohol and marijuana. Patient elected to do outpatient substance use treatment program through [facility]. Patient was also counseled on the medications and need for regular compliance and was encouraged to follow-up with their outpatient appointment for mental health and also for primary care. Prior to discharge a family meeting will be arranged by social sciences research scientist to answer any questions and ensure safety upon discharge. Patient will be discharged back home today, his will pick him up, [facility] Mental status exam: General Appearance: Patient appears to be wearing glasses, stated age is alert, pleasant, and cooperative. Patient is in no acute distress and has improved hygiene and grooming Behavior: Patient is calmly seated without any agitated behavior. Speech: Patient's speech is fluent and nonpressured. Mood/Affect: Patient reports their mood is "good", affect is congruent Suicidality/Homicidality: Patient denies having any suicidal or homicidal ideation intent or plan. Perceptions: Patient denies any auditory or visual hallucinations. Though content/process: There is no evidence of any delusional thought content and thought process is linear and goal-directed. More future oriented Memory and concentration: AOX3, grossly intact for the purposes of this session. Can spell "WORLD" backwards correctly. Judgment and insight: improved with guarded prognosis Impression: Schizoaffective disorder, depressive type Cannabis use disorder Nicotine dependence Plan: -Continue with discharge today as patient has improved and stabilized psychiatrically and is not currently an imminent threat to himself and/or others. -Continue medications: Continue with Prolixin p.o. 5 mg for 3 more days then discontinue. Patient was transitioned onto Prolixin D, given 12.5 mg IM q. 14 days last dose was given on 02/19 next dose will be due at [facility] on 03/05. Zoloft 100 mg nightly for mood/anxiety, trazodone 50 mg nightly as needed for insomnia. -Patient was counseled on the need for medication compliance and appropriate follow-up at mental health and also primary care for medical issues. Patient verbalized understanding and agreed. -Social work to arrange for and conduct family meeting to ensure safety upon discharge and answer any questions/concerns. Social work also to arrange for patients follow up appointments with [facility] for psychiatric care along with follow up with primary care provider. -Patient counseled on abstaining from recreational drugs and marijuana and alcohol. Was informed/educated on the adverse effects on their physical and mental health. Patient verbally agreed and understood. -Patient was instructed to return to the hospital or seek immediate medical care if their psychiatric or medical symptoms do worsen or reoccur. Allergies Allergy/AdvReac Type Severity Reaction Status Date / Time No Known Allergies Allergy Verified 02/09/24 01:09 Laboratory Results WBC 7.8 k/uL (3.8-10.6) 02/09/24 08:42 RBC 5.06 m/uL (4.30-5.90) 02/09/24 08:42 Hgb 15.8 gm/dL (13.0-17.5) 02/09/24 08:42 Hct 46.8 % (39.0-53.0) 02/09/24 08:42 MCV 92.5 fL (80.0-100.0) 02/09/24 08:42 MCH 31.2 pg (25.0-35.0) 02/09/24 08:42 MCHC 33.7 g/dL (31.0-37.0) 02/09/24 08:42 RDW 12.6 % (11.5-15.5) 02/09/24 08:42 Plt Count 206 k/uL (150-450) 02/09/24 08:42 MPV 8.9 02/09/24 08:42 Neutrophils % 61 % 02/09/24 08:42 Lymphocytes % 30 % 02/09/24 08:42 Monocytes % 6 % 02/09/24 08:42 Eosinophils % 1 % 02/09/24 08:42 Basophils % 1 % 02/09/24 08:42 Neutrophils # 4.7 k/uL (1.3-7.7) 02/09/24 08:42 Lymphocytes # 2.3 k/uL (1.0-4.8) 02/09/24 08:42 Monocytes # 0.5 k/uL (0-1.0) 02/09/24 08:42 Eosinophils # 0.1 k/uL (0-0.7) 02/09/24 08:42 Basophils # 0.0 k/uL (0-0.2) 02/09/24 08:42 Sodium 139 mmol/L (137-145) 02/09/24 08:42 Potassium 3.9 mmol/L (3.5-5.1) 02/09/24 08:42 Chloride 105 mmol/L (98-107) 02/09/24 08:42 Carbon Dioxide 25 mmol/L (22-30) 02/09/24 08:42 Anion Gap 9 mmol/L 02/09/24 08:42 BUN 5 mg/dL (9-20) L 02/09/24 08:42 Creatinine 0.64 mg/dL (0.66-1.25) L 02/09/24 08:42 Est GFR (CKD-EPI)AfAm >90 (>60 ml/min/1.73 sqM) 02/09/24 08:42 Est GFR (CKD-EPI)NonAf >90 (>60 ml/min/1.73 sqM) 02/09/24 08:42 Glucose 98 mg/dL (74-99) 02/09/24 08:[address] Glu mg/dL 108 mg/dL 02/09/24 08:42 Hemoglobin A1c 5.4 % (<=6.0) 02/09/24 08:42 Calcium 9.4 mg/dL (8.4-10.2) 02/09/24 08:42 Total Bilirubin 1.5 mg/dL (0.2-1.3) H 02/09/24 08:42 Conjugated Bilirubin 0.0 mg/dL (0.0-0.3) 02/09/24 08:42 Unconjugated Bilirubin 1.2 mg/dL (0.0-1.1) H 02/09/24 08:42 Delta Bilirubin 0.3 mg/dL (0.0-0.2) H 02/09/24 08:42 AST 47 U/L (17-59) 02/09/24 08:42 ALT 59 U/L (4-49) H 02/09/24 08:42 Alkaline Phosphatase 106 U/L (38-126) 02/09/24 08:42 Total Protein 7.2 g/dL (6.3-8.2) 02/09/24 08:42 Albumin 4.4 g/dL (3.5-5.0) 02/09/24 08:42 Triglycerides 133.00 mg/dL (0.00-149.00) 02/09/24 08:42 Cholesterol 139.00 mg/dL (0.00-200.00) 02/09/24 08:42 LDL Cholesterol, Calc 66.1 mg/dL (0.0-131.0) 02/09/24 08:42 VLDL Cholesterol, Calc 26.60 mg/dL (5.00-40.00) 02/09/24 08:42 HDL Cholesterol 46.30 mg/dL (40.00-60.00) 02/09/24 08:42 Cholesterol/HDL Ratio 3.00 Ratio 02/09/24 08:42 TSH 1.250 mIU/L (0.465-4.680) 02/09/24 08:42 Urine Opiates Screen Not Detected (NotDetected) 02/08/24 22:45 Ur Oxycodone Screen Not Detected (NotDetected) 02/08/24 22:45 Urine Methadone Screen Not Detected (NotDetected) 02/08/24 22:45 Ur Barbiturates Screen Not Detected (NotDetected) 02/08/24 22:45 U Tricyclic Antidepress Not Detected (NotDetected) 02/08/24 22:45 Ur Phencyclidine Scrn Not Detected (NotDetected) 02/08/24 22:45 Ur Amphetamines Screen Not Detected (NotDetected) 02/08/24 22:45 U Methamphetamines Scrn Not Detected (NotDetected) 02/08/24 22:45 U Benzodiazepines Scrn Not Detected (NotDetected) 02/08/24 22:45 Urine Cocaine Screen Not Detected (NotDetected) 02/08/24 22:45 U Marijuana (THC) Screen Detected (NotDetected) H 02/08/24 22:45 Influenza Type A (PCR) Not Detected (Not Detectd) 02/08/24 21:31 Influenza Type B (PCR) Not Detected (Not Detectd) 02/08/24 21:31 RSV (PCR) Not Detected (Not Detectd) 02/08/24 21:31 SARS-CoV-2 (PCR) Not Detected (Not Detectd) 02/08/24 21:31 Vital Signs Temp 97.6 F 02/21/24 06:00 Pulse 100 02/21/24 06:00 Resp 20 02/21/24 06:00 BP 116/77 02/21/24 06:00 Pulse Ox 97 02/21/24 06:00 FiO2 Intake & Output 02/20/24 02/21/24 02/21/24 18:59 06:59 18:59 Weight 99.5 kg Patient Condition at Discharge: Stable Plan - Discharge Summary Discharge Rx Participant: Yes New Discharge Prescriptions: New Nicotine 14Mg/24Hr Patch [Habitrol] 1 patch TRANSDERM DAILY 14 Days #14 patch fluPHENAZine [Prolixin] 5 mg PO HS 3 Days #3 tab fluPHENAZine decanoate [Prolixin Decanoate] 12.5 mg IM Q14D #1 ml traZODone HCL [Desyrel] 25 - 50 mg PO HS PRN 30 Days #30 tab PRN Reason: Insomnia lisinopriL [Zestril] 10 mg PO DAILY 30 Days #30 tab Sertraline [Zoloft] 100 mg PO HS 30 Days #30 tab Discontinued ARIPiprazole [Abilify] 10 mg PO DAILY 13 Days #13 tab ARIPiprazole IM SYRINGE [Abilify Maintena Syringe] 400 mg IM QMONTHLY #1 each hydrOXYzine pamoate [Vistaril] 50 mg PO BID PRN 30 Days #60 cap PRN Reason: anxiety traZODone HCL [Desyrel] 25 mg PO HS PRN 30 Days #15 tab PRN Reason: Insomnia Nicotine 14Mg/24Hr Patch [Habitrol] 1 patch TRANSDERM DAILY 14 Days #14 patch Discharge Medication List Nicotine 14Mg/24Hr Patch [Habitrol] 1 patch TRANSDERM DAILY 14 Days #14 patch 02/21/24 [Rx] Sertraline [Zoloft] 100 mg PO HS 30 Days #30 tab 02/21/24 [Rx] fluPHENAZine [Prolixin] 5 mg PO HS 3 Days #3 tab 02/21/24 [Rx] fluPHENAZine decanoate [Prolixin Decanoate] 12.5 mg IM Q14D #1 ml 08/02/24 [Rx] lisinopriL [Zestril] 10 mg PO DAILY 30 Days #30 tab 02/21/24 [Rx] traZODone HCL [Desyrel] 25 - 50 mg PO HS PRN 30 Days #30 tab 02/21/24 [Rx] Follow up Appointment(s)/Referral(s): [facility] - 02/27/24 12:30 pm (Feb 26 @ 12:30 with [facility] for IPOS. ) Marcelo Fung MD [Primary Care Provider] - 1-2 days Activity/Diet/Wound Care/Special Instructions: Avoid the use of street drugs and alcohol. Take all medications as prescribed. When you are in need of refills on your medications, please contact your outpatient medical provider and/or outpatient psychiatrist. Please go to your scheduled outpatient appointments for aftercare treatment. If symptoms return or become worse, call the crisis line at or and/or visit the nearest emergency room for assistance. National Suicide and Crisis Lifeline - call or text 572. Discharge Disposition: HOME SELF-CARE
== END 2024-02-21 13:16 | disposition home or self-care (01) | DRG 885 ==
LOC: EC 19:17 → 3MHU 23:36
PROVIDERS: ADMIT Psychiatry & Neurology Psychiatry; ATTEND Psychiatry & Neurology Psychiatry
DX: F25.1 Schizoaffective disorder, depressive type (principal); R45.851 Suicidal ideations; F12.10 Cannabis abuse, uncomplicated; F17.200 Nicotine dependence, unspecified, uncomplicated; F41.9 Anxiety disorder, unspecified; I10 Essential (primary) hypertension; Z79.899 Other long term (current) drug therapy; Z86.16 Personal history of COVID-19; Z91.148 Patient's other noncompliance with medication regimen for other reason; Z91.199 Patient's noncompliance with other medical treatment and regimen due to unspecified reason; Z11.52 Encounter for screening for COVID-19; Z28.310 Unvaccinated for COVID-19; Z28.21 Immunization not carried out because of patient refusal; Z71.51 Drug abuse counseling and surveillance of drug abuser; Z71.6 Tobacco abuse counseling
CPT/HCPCS: 80053; 80061; 80306; 82075; 82248; 83036; 84443; 85025; 87636; 99285